=== PATIENT | female | born 1970 | race American Indian/Alaskan Native ===

== ENCOUNTER 2016-11-29 14:16 | Emergency (ER) | payer MEDICAID, OTHER ==
[2016-11-29 15:45] VITALS: BP 170/94
[2016-11-29 17:12] LABS: CHLORIDE,CL 104 mmol/L (101-111); SODIUM,NA 140 mmol/L (135-145)
--- NOTE | 2016-11-29 17:25 | EDM.PDOC ---
Scribed by Flores Buck 11/29/16 1722 for Chano Edwards PA ED HPI GENERAL MEDICAL PROBLEM - General Chief Complaint: Lower Extremity Injury/Pain Stated Complaint: [id number] SURGERY ON ANKLE INFECTION Time Seen by Provider: 11/29/16 16:17 Source of Information: Reports: Patient, RN Notes Reviewed History Limitations: Reports: No Limitations - History of Present Illness INITIAL COMMENTS - FREE TEXT/NARRATIVE: Patient has blisters on left foot and getting bigger. She had a check up on , Dr. Freedman her surgeon. She had surgery on November 09 in [place]. She saw her OBGyN 2 days ago. She has no history of MRSA or antibiotics. Location: Reports: Lower Extremity, Left Quality: Reports: Ache Severity: Mild Improves with: Reports: None Worsens with: Reports: None Associated Symptoms: Reports: No Other Symptoms Left Ankle Pain Score (Numeric/FACES): 10 - Related Data Allergies Allergy/AdvReac Type Severity Reaction Status Date / Time latex Allergy Redness Verified 11/29/16 15:10 lisinopril Allergy Cough Verified 11/29/16 15:10 Sulfa (Sulfonamide Allergy Rash Verified 11/29/16 15:10 Antibiotics) Home Meds: Home Meds Cetirizine [ZyrTEC] 10 mg PO DAILY PRN 05/23/15 [History] Losartan [Cozaar] 100 mg PO BEDTIME 05/23/15 [History] Sertraline HCl [Sertraline HCl] 100 mg PO DAILY 05/23/15 [History] Meclizine HCl [Antivert] 25 mg PO DAILY 10/07/15 [History] amLODIPine [Norvasc] 2.5 mg PO DAILY 03/28/16 [History] Levalbuterol Tartrate [Xopenex HFA] 1 mg PO ASDIRECTED 11/29/16 [History] Losartan [Cozaar] 100 mg PO ASDIRECTED 11/29/16 [History] Venlafaxine HCl [Venlafaxine ER] 150 mg PO ASDIRECTED 11/29/16 [History] busPIRone HCl [busPIRone] 30 mg PO ASDIRECTED 11/29/16 [History] Past Medical History HEENT History: Reports: Impaired Vision Other HEENT History: LEFT EYE COMPLETE BLINDNESS Cardiovascular History: Reports: Angina, Arrhythmia, Hypertension, SOB on Exertion, Other (See Below) Other Cardiovascular History: HEART PALPITATIONS Respiratory History: Reports: Asthma, Sleep Apnea, SOB, Other (See Below) Other Respiratory History: ASTHMA WITH ALLERGIES Gastrointestinal History: Reports: Cholelithiasis, Chronic Diarrhea Genitourinary History: Reports: None THIRD COOK History: Reports: , Other (See Below) Other OB/BYN History: UTERINE CYST Musculoskeletal History: Reports: Arthritis, Fracture Psychiatric History: Reports: Anxiety, Panic Attack Endocrine/Metabolic History: Reports: Obesity/BMI 30+ Hematologic History: Reports: Other (See Below) Other Hematologic History: POTASSIUM SUPPLEMENTS Dermatologic History: Reports: Other (See Below) Other Dermatologic History: SENSITIVE SKIN - Infectious Disease History Infectious Disease History: Reports: Chicken Pox, Rheumatic Fever - Past Surgical History HEENT Surgical History: Reports: Eye Surgery Female Surgical History: Reports: Breast Biopsy, Tubal Ligation, Other (See Below) Endocrine Surgical History: Reports: None Neurological Surgical History: Reports: None Musculoskeletal Surgical History: Reports: Other (See Below) Oncologic Surgical History: Reports: Biopsy of Breast Social & Family History - Family History Family Medical History: Noncontributory - Tobacco Use Smoking Status *Q: Never Smoker Second Hand Smoke Exposure: No - Caffeine Use Caffeine Use: Reports: Coffee - Recreational Drug Use Recreational Drug Use: No - Living Situation & Occupation Living situation: Reports: with Significant Other Occupation: Employed Review of Systems - Review of Systems Review Of Systems: ROS reveals no pertinent complaints other than HPI. ED EXAM, GENERAL - Physical Exam Exam: See Below Exam Limited By: No Limitations General Appearance: Alert, WD/WN, No Apparent Distress Eye Exam: Bilateral Eye: Normal Inspection Ears: Normal External Exam, Normal Canal, Hearing Grossly Normal, Normal TMs Nose: Normal Inspection, Normal Mucosa, No Blood Throat/Mouth: Normal Inspection, Normal Lips, Normal Teeth, Normal Gums, Normal Oropharynx, Normal Voice, No Airway Compromise Head: Atraumatic, Normocephalic Neck: Normal Inspection, Supple, Non-Tender, Full Range of Motion Respiratory/Chest: No Respiratory Distress, Lungs Clear, Normal Breath Sounds, No Accessory Muscle Use, Chest Non-Tender Cardiovascular: Normal Peripheral Pulses, Regular Rate, Rhythm, No Edema, No Gallop, No JVD, No Murmur, No Rub GI/Abdominal: Other (obese) (Female) Exam: Deferred Rectal (Female) Exam: Deferred Back Exam: Normal Inspection, Full Range of Motion, NT Extremities: Other (left ankle swelling(po) Neurological: Alert ( ), Oriented, CN II-XII Intact, Normal Cognition, Normal Gait, Normal Reflexes, No Motor/Sensory Deficits Psychiatric: Normal Affect, Normal Mood Skin Exam: Other (Clear fluid blister left anterior ankle. Mild incisional drainage(purulent). Pain with palpation.) Lymphatic: No Adenopathy Course - Vital Signs Last Recorded V/S: Last Vital Signs Temp 36.5 C 11/29/16 15:40 Pulse 83 11/29/16 15:40 Resp 14 11/29/16 15:40 BP 170/94 H 11/29/16 15:40 Pulse Ox 99 11/29/16 15:40 - Orders/Labs/Meds Orders: Active Orders 24 hr Category Date Time Status Ankle Min 3V Lt [CR] Urgent Exams 11/29/16 16:23 Taken CULTURE BLOOD [BC] Stat Lab 11/29/16 16:42 Received Labs: Laboratory Tests 11/29/16 11/29/16 11/29/16 Range/Units 16:42 16:42 16:42 WBC 10.8 H (5.0-10.0) 10^3/uL RBC 4.41 (4.2-5.4) 10^6/uL Hgb 12.1 (12.0-16.0) g/dL Hct 37.4 (37.0-47.0) % MCV 84.8 (80-100) fL MCH 27.4 (27.0-34.0) pg MCHC 32.4 L (33.0-35.0) g/dL Plt Count 342 (150-450) 10^3/uL Neut % (Auto) 71.6 (42.2-75.2) % Lymph % (Auto) 18.8 L (20.5-50.1) % [place] % (Auto) 6.4 (2-8) % Eos % (Auto) 3.0 (1.0-3.0) % Baso % (Auto) 0.2 (0.0-1.0) % Sodium 140 (135-145) mmol/L Potassium 3.9 (3.6-5.0) mmol/L Chloride 104 (101-111) mmol/L Carbon Dioxide 26.0 (21.0-31.0) mmol/L Anion Gap 13.9 BUN 18 (7-18) mg/dL Creatinine 0.6 (0.6-1.3) mg/dL Est Cr Clr Drug Dosing TNP Estimated GFR (MDRD) > 60 BUN/Creatinine Ratio 30.00 Glucose 105 (74-105) mg/dL Lactic Acid 1.0 (0.5-2.2) mmol/L Calcium 9.3 (8.4-10.2) mg/dl Total Bilirubin 0.4 (0.2-1.0) mg/dL AST 15 (10-42) IU/L ALT 17 (10-60) IU/L Alkaline Phosphatase 78 (42-121) IU/L Total Protein 7.5 (6.7-8.2) g/dl Albumin 3.9 (3.2-5.5) g/dl Globulin 3.6 Albumin/Globulin Ratio 1.08 Departure - Departure Time of Disposition: 17:18 Disposition: Home, Self-Care 01 Condition: Good Clinical Impression: Cellulitis Qualifiers: Site of cellulitis: extremity Site of cellulitis of extremity: lower extremity Laterality: left Qualified Code(s): L03.116 - Cellulitis of left lower limb - Discharge Information Instructions: Cellulitis, Adult, [id number] Forms: ED Department Discharge Additional Instructions: Doxycycline 100mg p.o.b.i.d. x10 days. - My Orders Last 24 Hours: My Active Orders 11/29/16 16:23 Ankle Min 3V Lt [CR] Urgent 11/29/16 16:42 CULTURE BLOOD [BC] Stat - Assessment/Plan Last 24 Hours: My Active Orders 11/29/16 16:23 Ankle Min 3V Lt [CR] Urgent 11/29/16 16:42 CULTURE BLOOD [BC] Stat I have read and agree with the documentation that has been completed regarding this visit. By signing this record, I attest that the documentation was completed in my physical presence and is an accurate record of the encounter.
== END 2016-11-29 17:27 | disposition home or self-care (01) ==
LOC: DL.ED 14:16
DX: L03.116 Cellulitis of left lower limb (principal); I10 Essential (primary) hypertension; J45.909 Unspecified asthma, uncomplicated; G47.30 Sleep apnea, unspecified; M19.90 Unspecified osteoarthritis, unspecified site; F41.0 Panic disorder [episodic paroxysmal anxiety]; E66.9 Obesity, unspecified; Z98.51 Tubal ligation status; Z98.890 Other specified postprocedural states; Z79.899 Other long term (current) drug therapy; Z88.2 Allergy status to sulfonamides; Z88.8 Allergy status to other drugs, medicaments and biological substances; Z91.040 Latex allergy status
CPT/HCPCS: 36415; 73610-LT; 80053; 83605; 85025; 87040; 99283

== ENCOUNTER 2017-01-05 15:16 | Emergency (ER) | payer MEDICAID ==
[2017-01-05] MEDS ORDERED: Sodium Chloride 0.9% 10 ML Syringe FLUSH PRN (17:00)
[2017-01-05] MEDS ORDERED: Levofloxacin/Dextrose 5%-Water 500 MG in Premix Bag 1 BAG IV ONE (17:00)
[2017-01-05] MEDS ORDERED: Ondansetron 4 MG/2 ML SDV IV ONE (17:00)
[2017-01-05] MEDS ORDERED: Sodium Chloride 0.9% 1,000 ML IV ONE (17:00)
[2017-01-05] MEDS ORDERED: HYDROmorphone 1 MG/ML Syringe IVPUSH ONE ×2 (17:00→18:34)
[2017-01-05 17:01] VITALS: BP 150/74
[2017-01-05 17:41] LABS: CHLORIDE,CL 101 mmol/L (101-111); SODIUM,NA 138 mmol/L (135-145)
--- NOTE | 2017-01-05 18:35 | EDM.PDOC ---
Scribed by Flores Buck 01/05/17 1806 for Jarod Irving MD ED HPI GENERAL MEDICAL PROBLEM - General Chief Complaint: Genitourinary Problem Stated Complaint: UTI [id number] Time Seen by Provider: 01/05/17 16:55 Source of Information: Reports: Patient, RN, RN Notes Reviewed History Limitations: Reports: No Limitations - History of Present Illness INITIAL COMMENTS - FREE TEXT/NARRATIVE: Patient presents by POV with complaint of pain and burning with urination. Patient states she had a hysterectomy in [place] on 12/28/16. She contacted her [facility] surgeon on 01/03/17 to report urinary symptoms. Her doctor ordered a UA and diagnosed her with UTI and sent a prescription for Bactrim DS to the patient's pharmacy. The patient took one dose, and then realized that it was a sulfa medication and she has a sulfa allergy. She took Benadryl 25mg and called her doctor. She states that the doctor stated that she would send another antibiotic prescription but it did not arrive to the pharmacy closing. She states that her urinary symptoms have not improved. She believes that she may have had a low grade fever last evening. Denies any flank pain. She reports that her postoperative pelvic pain is about as she expected, however, she did run out of her pain medication. Location: Reports: Back Quality: Reports: Ache Severity: Moderate Improves with: Reports: None Worsens with: Reports: None Associated Symptoms: Reports: No Other Symptoms - Related Data Allergies Allergy/AdvReac Type Severity Reaction Status Date / Time latex Allergy Redness Verified 11/29/16 15:10 lisinopril Allergy Cough Verified 11/29/16 15:10 Sulfa (Sulfonamide Allergy Rash Verified 11/29/16 15:10 Antibiotics) Home Meds: Home Meds Cetirizine [ZyrTEC] 10 mg PO DAILY PRN 05/23/15 [History] Losartan [Cozaar] 100 mg PO BEDTIME 05/23/15 [History] Sertraline HCl [Sertraline HCl] 100 mg PO DAILY 05/23/15 [History] Meclizine HCl [Antivert] 25 mg PO DAILY 10/07/15 [History] amLODIPine [Norvasc] 2.5 mg PO DAILY 03/28/16 [History] Levalbuterol Tartrate [Xopenex HFA] 1 mg PO ASDIRECTED 11/29/16 [History] Losartan [Cozaar] 100 mg PO ASDIRECTED 11/29/16 [History] Venlafaxine HCl [Venlafaxine ER] 150 mg PO ASDIRECTED 11/29/16 [History] busPIRone HCl [busPIRone] 30 mg PO ASDIRECTED 11/29/16 [History] Past Medical History HEENT History: Reports: Impaired Vision Other HEENT History: LEFT EYE COMPLETE BLINDNESS Cardiovascular History: Reports: Angina, Arrhythmia, Hypertension, SOB on Exertion, Other (See Below) Other Cardiovascular History: HEART PALPITATIONS Respiratory History: Reports: Asthma, Sleep Apnea, SOB, Other (See Below) Other Respiratory History: ASTHMA WITH ALLERGIES Gastrointestinal History: Reports: Cholelithiasis, Chronic Diarrhea Genitourinary History: Reports: None [facility] [employer] History: Reports: , Other (See Below) Other OB/BYN History: UTERINE CYST Musculoskeletal History: Reports: Arthritis, Fracture Psychiatric History: Reports: Anxiety, Panic Attack Endocrine/Metabolic History: Reports: Obesity/BMI 30+ Hematologic History: Reports: Other (See Below) Other Hematologic History: POTASSIUM SUPPLEMENTS Dermatologic History: Reports: Other (See Below) Other Dermatologic History: SENSITIVE SKIN - Infectious Disease History Infectious Disease History: Reports: Chicken Pox, Rheumatic Fever - Past Surgical History HEENT Surgical History: Reports: Eye Surgery Female Surgical History: Reports: Breast Biopsy, Hysterectomy, Tubal Ligation , Other (See Below) Endocrine Surgical History: Reports: None Neurological Surgical History: Reports: None Musculoskeletal Surgical History: Reports: Other (See Below) Oncologic Surgical History: Reports: Biopsy of Breast Social & Family History - Family History Family Medical History: Noncontributory - Tobacco Use Smoking Status *Q: Never Smoker Second Hand Smoke Exposure: No - Caffeine Use Caffeine Use: Reports: Coffee - Recreational Drug Use Recreational Drug Use: No - Living Situation & Occupation Living situation: Reports: with Significant Other Occupation: Employed ED ROS GENERAL - Review of Systems Review Of Systems: ROS reveals no pertinent complaints other than HPI. ED EXAM, RENAL/ - Physical Exam Exam: See Below Exam Limited By: No Limitations General Appearance: Alert, WD/WN, No Apparent Distress, Obese Eye Exam: Bilateral Eye: Normal Inspection Ears: Normal External Exam, Normal Canal, Hearing Grossly Normal, Normal TMs Nose: Normal Inspection, Normal Mucosa, No Blood Throat/Mouth: Normal Inspection, Normal Lips, Normal Teeth, Normal Gums, Normal Oropharynx, Normal Voice, No Airway Compromise Head: Atraumatic, Normocephalic Neck: Other (No nuchal rigidity) Respiratory/Chest: No Respiratory Distress, Lungs Clear, Normal Breath Sounds, No Accessory Muscle Use, Chest Non-Tender Cardiovascular: Normal Peripheral Pulses, Regular Rate, Rhythm, No Edema, No Gallop, No JVD, No Murmur, No Rub GI/Abdominal: Other (Well healed surgical incision. Moderate lower abdomen tenderness as expected for POD#8. ) (Female) Exam: Deferred Rectal (Female) Exam: Deferred Back Exam: Normal Inspection, Full Range of Motion, NT Extremities: Normal Inspection, Normal Range of Motion, Non-Tender, Normal Capillary Refill, No Pedal Edema Neurological: Alert, Oriented, CN II-XII Intact, Normal Cognition, Normal Gait, Normal Reflexes, No Motor/Sensory Deficits Psychiatric: Normal Affect, Normal Mood Skin Exam: Warm, Dry, Intact, Normal Color, No Rash Course - Vital Signs Last Recorded V/S: Last Vital Signs Temp 36.3 C 01/05/17 16:55 Pulse 83 01/05/17 16:55 Resp 22 H 01/05/17 16:55 BP 150/74 H 01/05/17 16:55 Pulse Ox 100 01/05/17 16:55 - Orders/Labs/Meds Orders: Active Orders 24 hr Category Date Time Status Peripheral IV Care [RC] . DIRECTED Care 01/05/17 17:00 Active CULTURE URINE [RM] Stat Lab 01/05/17 15:24 Received Levofloxacin/Dextrose 5%-Water [Levaquin in D5W 500 MG/ Med 01/05/17 17:00 Active 100 ML] 500 mg Premix Bag 1 bag IV ONETIME Sodium Chloride 0.9% [Normal Saline] 1,000 ml Med 01/05/17 17:00 Active IV .BOLUS Sodium Chloride 0.9% [Saline Flush] Med 01/05/17 17:00 Active 10 ml FLUSH ASDIRECTED PRN Peripheral IV Insertion Adult [OM.PC] Stat Oth 01/05/17 17:00 Ordered Medication Orders Levofloxacin/Dextrose 500 mg/ (Premix) 100 mls @ 100 mls/hr IV ONETIME ONE Stop: 01/05/17 17:59 Last Admin: 01/05/17 17:32 Dose: 100 mls/hr Sodium Chloride (Normal Saline) 1,000 mls @ 999 mls/hr IV .BOLUS ONE Stop: 01/05/17 18:00 Last Admin: 01/05/17 17:21 Dose: 999 mls/hr Sodium Chloride (Saline Flush) 10 ml FLUSH ASDIRECTED PRN PRN Reason: Keep Vein Open Last Admin: 01/05/17 17:16 Dose: 10 ml Labs: Laboratory Tests 01/05/17 01/05/17 01/05/17 Range/Units 15:24 15:24 17:15 WBC 14.8 H (5.0-10.0) 10^3/uL RBC 4.37 (4.2-5.4) 10^6/uL Hgb 11.8 L (12.0-16.0) g/dL Hct 37.2 (37.0-47.0) % MCV 85.1 (80-100) fL MCH 27.0 (27.0-34.0) pg MCHC 31.7 L (33.0-35.0) g/dL Plt Count 370 (150-450) 10^3/uL Neut % (Auto) 77.3 H (42.2-75.2) % Lymph % (Auto) 10.2 L (20.5-50.1) % [place] % (Auto) 5.5 (2-8) % Eos % (Auto) 6.9 H (1.0-3.0) % Baso % (Auto) 0.1 (0.0-1.0) % Sodium (135-145) mmol/L Potassium (3.6-5.0) mmol/L Chloride (101-111) mmol/L Carbon Dioxide (21.0-31.0) mmol/L Anion Gap BUN (7-18) mg/dL Creatinine (0.6-1.3) mg/dL Est Cr Clr Drug Dosing mL/min Estimated GFR (MDRD) BUN/Creatinine Ratio Glucose (74-105) mg/dL Calcium (8.4-10.2) mg/dl Total Bilirubin (0.2-1.0) mg/dL AST (10-42) IU/L ALT (10-60) IU/L Alkaline Phosphatase (42-121) IU/L Total Protein (6.7-8.2) g/dl Albumin (3.2-5.5) g/dl Globulin Albumin/Globulin Ratio Urine Color Yellow (YELLOW) Urine Appearance Slightly cloudy (CLEAR) Urine pH 7.0 (5.0-9.0) Ur Specific [place] 1.015 (1.005-1.030) Urine Protein Negative (NEGATIVE) Urine Glucose (UA) Negative (NEGATIVE) Urine Ketones Negative (NEGATIVE) Urine Occult Blood Trace-lysed H (NEGATIVE) Urine Nitrite Negative (NEGATIVE) Urine Bilirubin Negative (NEGATIVE) Urine Urobilinogen 0.2 (0.2-1.0) mg/dL Ur Leukocyte Esterase Trace H (NEGATIVE) Urine RBC 0-5 /HPF Urine WBC 10-20 H (0-5/HPF) /HPF Ur Epithelial Cells Few /HPF Urine Bacteria Rare (0-FEW/HPF) /HPF Urine Mucus Rare /LPF Urine HCG, Qual Negative 01/05/17 Range/Units 17:15 WBC (5.0-10.0) 10^3/uL RBC (4.2-5.4) 10^6/uL Hgb (12.0-16.0) g/dL Hct (37.0-47.0) % MCV (80-100) fL MCH (27.0-34.0) pg MCHC (33.0-35.0) g/dL Plt Count (150-450) 10^3/uL Neut % (Auto) (42.2-75.2) % Lymph % (Auto) (20.5-50.1) % [place] % (Auto) (2-8) % Eos % (Auto) (1.0-3.0) % Baso % (Auto) (0.0-1.0) % Sodium 138 (135-145) mmol/L Potassium 4.1 (3.6-5.0) mmol/L Chloride 101 (101-111) mmol/L Carbon Dioxide 25.0 (21.0-31.0) mmol/L Anion Gap 16.1 BUN 10 (7-18) mg/dL Creatinine 0.8 (0.6-1.3) mg/dL Est Cr Clr Drug Dosing 71.91 mL/min Estimated GFR (MDRD) > 60 BUN/Creatinine Ratio 12.50 Glucose 131 H (74-105) mg/dL Calcium 8.9 (8.4-10.2) mg/dl Total Bilirubin 0.4 (0.2-1.0) mg/dL AST 16 (10-42) IU/L ALT 17 (10-60) IU/L Alkaline Phosphatase 83 (42-121) IU/L Total Protein 7.7 (6.7-8.2) g/dl Albumin 3.6 (3.2-5.5) g/dl Globulin 4.1 Albumin/Globulin Ratio 0.88 Urine Color (YELLOW) Urine Appearance (CLEAR) Urine pH (5.0-9.0) Ur Specific [place] (1.005-1.030) Urine Protein (NEGATIVE) Urine Glucose (UA) (NEGATIVE) Urine Ketones (NEGATIVE) Urine Occult Blood (NEGATIVE) Urine Nitrite (NEGATIVE) Urine Bilirubin (NEGATIVE) Urine Urobilinogen (0.2-1.0) mg/dL Ur Leukocyte Esterase (NEGATIVE) Urine RBC /HPF Urine WBC (0-5/HPF) /HPF Ur Epithelial Cells /HPF Urine Bacteria (0-FEW/HPF) /HPF Urine Mucus /LPF Urine HCG, Qual Meds: Medications Generic Name Dose Route Start Last Admin Trade Name Freq PRN Reason Stop Dose Admin Levofloxacin/Dextrose 500 mg/ 100 mls @ 100 mls/hr 01/05/17 17:00 01/05/17 17 :32 Premix IV 01/05/17 17:59 100 mls/hr ONETIME ONE Administration Sodium Chloride 1,000 mls @ 999 mls/hr 01/05/17 17:00 01/05/17 17:21 Normal Saline IV 01/05/17 18:00 999 mls/hr .BOLUS ONE Administration Sodium Chloride 10 ml 01/05/17 17:00 01/05/17 17:16 Saline Flush FLUSH 10 ml ASDIRECTED PRN Administration Keep Vein Open Discontinued Medications Generic Name Dose Route Start Last Admin Trade Name Freq PRN Reason Stop Dose Admin Hydromorphone HCl 1 mg 01/05/17 17:00 01/05/17 17:25 Dilaudid IVPUSH 01/05/17 17:01 1 mg ONETIME ONE Administration Ondansetron HCl 4 mg 01/05/17 17:00 01/05/17 17:23 Zofran IV 01/05/17 17:01 4 mg ONETIME ONE Administration Departure - Departure Time of Disposition: 18:03 Disposition: Home, Self-Care 01 Condition: Fair Clinical Impression: UTI (urinary tract infection) - Discharge Information Instructions: Urinary Tract Infection, Adult, [id number] Forms: ED Department Discharge Additional Instructions: RX: Cipro 500mg. RX: Percocet 5mg/325mg. Follow up with your [facility] next week for recheck. Return to ER if worse at any time. I have read and agree with the documentation that has been completed regarding this visit. By signing this record, I attest that the documentation was completed in my physical presence and is an accurate record of the encounter.
[2017-01-05] MEDS ORDERED: Acetaminophen/oxyCODONE 325-5 MG Tab ONE (19:08)
[2017-01-05] MEDS ORDERED: Acetaminophen/oxyCODONE 325-5 MG Tab PO ONE (19:08)
== END 2017-01-05 19:13 | disposition home or self-care (01) ==
LOC: DL.ED 15:16
DX: N39.0 Urinary tract infection, site not specified (principal); I10 Essential (primary) hypertension; J45.909 Unspecified asthma, uncomplicated; F41.0 Panic disorder [episodic paroxysmal anxiety]; E66.9 Obesity, unspecified; G47.30 Sleep apnea, unspecified; M19.90 Unspecified osteoarthritis, unspecified site; Z90.710 Acquired absence of both cervix and uterus; Z98.51 Tubal ligation status; Z98.890 Other specified postprocedural states; Z79.899 Other long term (current) drug therapy; Z88.2 Allergy status to sulfonamides; Z88.8 Allergy status to other drugs, medicaments and biological substances; Z91.040 Latex allergy status; Z68.41 Body mass index [BMI] 40.0-44.9, adult
CPT/HCPCS: 36415; 80053; 81001; 81025; 85025; 87086; 96365; 96366; 96368; 96375; 96376; 99283; J1170; J1956; J2405; J7030; J7050; 87088; 87186; A9270-GY

== ENCOUNTER 2017-07-15 19:54 | Emergency (ER) | payer MEDICAID ==
[2017-07-15] MEDS ORDERED: Aspirin 81 MG Tab.Chew PO ONE (20:30)
[2017-07-15 20:45] LABS: CHLORIDE,CL 103 mmol/L (101-111); SODIUM,NA 136 mmol/L (135-145)
[2017-07-15] MEDS ORDERED: Nitroglycerin 0.4 MG Tab.SL SL ONE (20:56)
--- NOTE | 2017-07-15 20:56 | EDM.PDOC ---
ED HPI GENERAL MEDICAL PROBLEM - General Chief Complaint: Chest Pain Stated Complaint: [id number] chest pains sob Time Seen by Provider: 07/15/17 20:28 Source of Information: Reports: Patient, RN, RN Notes Reviewed - History of Present Illness INITIAL COMMENTS - FREE TEXT/NARRATIVE: Pt presents to the ER with c/o chest pain and shortness of breath. She states the chest pain radiated up to the left shoulder/neck. She states the pain began about 1900 today. She states she felt pressure in the chest and her breathing became labored. She states she has asthma and tried to use her inhaler but this did not help. Pt states she began coughing at this time as well. Pt rates the pain a 6/10 at this time. Patient admits to recent chills, chest pain and sob, and cough which began today. Denies fever, N/V/D, or sore throat. Patient was recently started on nifedipine by Dr. Laws. She asks if this medication could be causing this feeling. Patient states she has the history of asthma and states this began when she went outside, is also wondering if the cold air outside could have triggered something with her asthma, although patient is not having any difficulty breathing at this time. Patient states a history of anxiety, but feels there was nothing to trigger an anxiety attack today. Onset: Today, Sudden Duration: Constant, Getting Worse Location: Reports: Chest Quality: Reports: Pressure Severity: Moderate Improves with: Reports: None Worsens with: Reports: None Associated Symptoms: Reports: Chest Pain, Cough, Shortness of Breath Mid-Sternal Chest Pain Score (Numeric/FACES): 6 - Related Data Allergies Allergy/AdvReac Type Severity Reaction Status Date / Time latex Allergy Redness Verified 07/15/17 20:07 lisinopril Allergy Cough Verified 07/15/17 20:07 Sulfa (Sulfonamide Allergy Rash Verified 07/15/17 20:07 Antibiotics) Home Meds: Home Meds Cetirizine [ZyrTEC] 10 mg PO DAILY PRN 05/23/15 [History] Losartan [Cozaar] 100 mg PO BEDTIME 05/23/15 [History] Sertraline HCl [Sertraline HCl] 100 mg PO DAILY 05/23/15 [History] Meclizine HCl [Antivert] 25 mg PO DAILY 10/07/15 [History] amLODIPine [Norvasc] 2.5 mg PO DAILY 03/28/16 [History] Levalbuterol Tartrate [Xopenex HFA] 1 mg PO ASDIRECTED 11/29/16 [History] Losartan [Cozaar] 100 mg PO ASDIRECTED 11/29/16 [History] Venlafaxine HCl [Venlafaxine ER] 150 mg PO ASDIRECTED 11/29/16 [History] busPIRone HCl [busPIRone] 30 mg PO ASDIRECTED 11/29/16 [History] Past Medical History HEENT History: Reports: Impaired Vision Other HEENT History: LEFT EYE COMPLETE BLINDNESS Cardiovascular History: Reports: Angina, Arrhythmia, Hypertension, SOB on Exertion, Other (See Below) Other Cardiovascular History: HEART PALPITATIONS Respiratory History: Reports: Asthma, Sleep Apnea, SOB, Other (See Below) Other Respiratory History: ASTHMA WITH ALLERGIES Gastrointestinal History: Reports: Cholelithiasis, Chronic Diarrhea Genitourinary History: Reports: None 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: , 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 (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) Other OB/BYN History: UTERINE CYST Musculoskeletal History: Reports: Arthritis, Fracture Psychiatric History: Reports: Anxiety, Panic Attack Endocrine/Metabolic History: Reports: Obesity/BMI 30+ Hematologic History: Reports: Other (See Below) Other Hematologic History: POTASSIUM SUPPLEMENTS Dermatologic History: Reports: Other (See Below) Other Dermatologic History: SENSITIVE SKIN - Infectious Disease History Infectious Disease History: Reports: Chicken Pox, Rheumatic Fever - Past Surgical History HEENT Surgical History: Reports: Eye Surgery Female Surgical History: Reports: Breast Biopsy, Hysterectomy, Tubal Ligation , Other (See Below) Endocrine Surgical History: Reports: None Neurological Surgical History: Reports: None Musculoskeletal Surgical History: Reports: Other (See Below) Oncologic Surgical History: Reports: Biopsy of Breast Social & Family History - Family History Family Medical History: Noncontributory - Tobacco Use Smoking Status *Q: Never Smoker Second Hand Smoke Exposure: No - Caffeine Use Caffeine Use: Reports: Soda, Tea - Recreational Drug Use Recreational Drug Use: No - Living Situation & Occupation Living situation: Reports: with Significant Other Occupation: Employed ED ROS GENERAL - Review of Systems Review Of Systems: ROS reveals no pertinent complaints other than HPI. ED EXAM, GENERAL - Physical Exam Exam: See Below Exam Limited By: No Limitations General Appearance: Alert, WD/WN, No Apparent Distress Eye Exam: Bilateral Eye: EOMI, Normal Inspection Ears: Normal External Exam, Hearing Grossly Normal Nose: Normal Inspection Throat/Mouth: Normal Inspection, Normal Lips, Normal Teeth, Normal Gums, Normal Oropharynx, Normal Voice, No Airway Compromise Head: Atraumatic, Normocephalic Neck: Normal Inspection, Supple, Non-Tender, Full Range of Motion Respiratory/Chest: No Respiratory Distress, Lungs Clear, Normal Breath Sounds, No Accessory Muscle Use, Other (chest somewhat tender on palpation) Cardiovascular: Normal Peripheral Pulses, Regular Rate, Rhythm, No Edema, No Gallop, No JVD, No Murmur, No Rub Peripheral Pulses: 2+: Radial (L), Radial (R) GI/Abdominal: Normal Bowel Sounds, Soft, Non-Tender, No Organomegaly, No Distention, No Abnormal Bruit, No Mass (Female) Exam: Deferred Rectal (Female) Exam: Deferred Back Exam: Normal Inspection, Full Range of Motion Extremities: Normal Inspection, Normal Range of Motion, Non-Tender, Normal Capillary Refill, No Pedal Edema Neurological: Alert, Oriented, CN II-XII Intact, Normal Cognition, Normal Gait, Normal Reflexes, No Motor/Sensory Deficits Psychiatric: Anxious Skin Exam: Warm, Dry, Intact, Normal Color, No Rash Lymphatic: No Adenopathy EKG INTERPRETATION EKG Date: 07/15/17 Time: 18:56 Rhythm: NSR Rate (Beats/Min): 90 [place]: Normal P-Wave: Present QRS: Normal ST-T: Normal QT: Normal Comparison: No Change (Bradycardic on last EKG, but otherwise no change) Course - Vital Signs Last Recorded V/S: Last Vital Signs Temp 98.2 F 07/15/17 19:55 Pulse 95 07/15/17 19:55 Resp 20 07/15/17 19:55 BP 170/94 H 07/15/17 21:03 Pulse Ox 100 07/15/17 19:55 - Orders/Labs/Meds Orders: Active Orders 24 hr Category Date Time Status EKG Documentation Completion [RC] URGENT Care 07/15/17 20:01 Active Labs: Laboratory Tests 07/15/17 07/15/17 07/15/17 Range/Units 20:16 20:16 20:16 WBC 12.1 H (5.0-10.0) 10^3/uL RBC 4.37 (4.2-5.4) 10^6/uL Hgb 12.2 (12.0-16.0) g/dL Hct 37.0 (37.0-47.0) % MCV 84.7 (80-100) fL MCH 27.9 (27.0-34.0) pg MCHC 33.0 (33.0-35.0) g/dL Plt Count 322 (150-450) 10^3/uL Neut % (Auto) 67.9 (42.2-75.2) % Lymph % (Auto) 23.1 (20.5-50.1) % [place] % (Auto) 6.1 (2-8) % Eos % (Auto) 2.7 (1.0-3.0) % Baso % (Auto) 0.2 (0.0-1.0) % Sodium 136 (135-145) mmol/L Potassium 3.7 (3.6-5.0) mmol/L Chloride 103 (101-111) mmol/L Carbon Dioxide 24.0 (21.0-31.0) mmol/L Anion Gap 12.7 BUN 16 (7-18) mg/dL Creatinine 1.1 (0.6-1.3) mg/dL Est Cr Clr Drug Dosing 49.47 mL/min Estimated GFR (MDRD) 53 BUN/Creatinine Ratio 14.54 Glucose 146 H (74-105) mg/dL Lactic Acid 1.4 (0.5-2.2) mmol/L Calcium 8.7 (8.4-10.2) mg/dl Total Bilirubin 0.4 (0.2-1.0) mg/dL AST 21 (10-42) IU/L ALT 21 (10-60) IU/L Alkaline Phosphatase 74 (42-121) IU/L Troponin I < 0.02 (0.00-0.02) ng/ml Total Protein 7.3 (6.7-8.2) g/dl Albumin 3.8 (3.2-5.5) g/dl Globulin 3.5 Albumin/Globulin Ratio 1.09 Meds: Medications Discontinued Medications Generic Name Dose Route Start Last Admin Trade Name Freq PRN Reason Stop Dose Admin Aspirin 324 mg 07/15/17 20:30 07/15/17 20:36 Aspirin PO 07/15/17 20:31 324 mg ONETIME ONE Administration Nitroglycerin 0.4 mg 07/15/17 20:56 07/15/17 21:03 Nitrostat SL 07/15/17 20:57 0.4 mg Q5M ONE Administration - Radiology Interpretation Free Text/Narrative:: Chest xray: No acute cardiopulmonary process. There is no significant interval change. See rad report Departure - Departure Time of Disposition: 21:30 Disposition: Home, Self-Care 01 Condition: Fair Clinical Impression: Nonspecific chest pain Instructions: Nonspecific Chest Pain, [id number] Referrals: Vivian Coello [Primary Care Provider] - Forms: ED Department Discharge Additional Instructions: Follow up with Dr. Laws Follow up with your primary care facility Return to the ER with any further problems - My Orders Last 24 Hours: My Active Orders 07/15/17 20:01 EKG Documentation Completion [RC] URGENT - Assessment/Plan Last 24 Hours: My Active Orders 07/15/17 20:01 EKG Documentation Completion [RC] URGENT
[2017-07-15 21:04] VITALS: BP 170/94
--- NOTE | 2017-07-17 10:54 | EKG ---
07/15/2017- LÁZARO SHELDON - FINDINGS: EKG per my reading shows sinus rhythm at the rate of 90. MODL /[id number]
== END 2017-07-15 21:48 | disposition home or self-care (01) ==
LOC: DL.ED 19:54
DX: R07.89 Other chest pain (principal); I10 Essential (primary) hypertension; Z91.040 Latex allergy status; Z88.2 Allergy status to sulfonamides; Z88.8 Allergy status to other drugs, medicaments and biological substances; Z79.899 Other long term (current) drug therapy
CPT/HCPCS: 36415; 71045; 80053; 83605; 84484; 85025; 93005; 99285; A9270

== ENCOUNTER 2017-08-07 12:15 | Inpatient (IN) | payer MEDICAID ==
[2017-08-07] MEDS ORDERED: cefTRIAXone 1,000 MG in Sodium Chloride 0.9% 50 ML IV SCH (12:45)
[2017-08-07] MEDS ORDERED: Sodium Chloride 0.9% 10 ML Syringe FLUSH PRN (12:56)
--- NOTE | 2017-08-07 13:12 | PCM.HP ---
H&P History of Present Illness - General Date of Service: 08/07/17 Admit Problem/Dx: Admission Diagnosis/Problem Admission Diagnosis/Problem Hypoxemia Source of Information: Patient, Provider - History of Present Illness Initial Comments - Free Text/Narative: The patient is a 47-year-old lady with a history of asthma, anxiety, hypertension. She is also using the CPAP machine for obstructive sleep apnea. She was in close contact with her brother who has been coughing for a while. On 06 August the patient started to have cough. Overnight worsened. By today she is short of breath with minimal activity, associated with coughing, no sputum production. Feeling cold, chills, did not check her temperature at home. She went to the clinic where she was noted to have hypoxemia with oxygen saturations 88 on room air. - Related Data Allergies/Adverse Reactions: Allergies Allergy/AdvReac Type Severity Reaction Status Date / Time latex Allergy Redness Verified 08/07/17 12:44 lisinopril Allergy Cough Verified 08/07/17 12:44 Sulfa (Sulfonamide Allergy Rash Verified 08/07/17 12:44 Antibiotics) Home Medications: Home Meds Cetirizine [ZyrTEC] 10 mg PO DAILY PRN 05/23/15 [History] Losartan [Cozaar] 100 mg PO BEDTIME 05/23/15 [History] Sertraline HCl 100 mg PO DAILY 05/23/15 [History] Meclizine HCl [Antivert] 25 mg PO DAILY 10/07/15 [History] Levalbuterol Tartrate [Xopenex HFA] 1 mg PO DAILY 11/29/16 [History] Venlafaxine HCl [Venlafaxine ER] 150 mg PO DAILY 11/29/16 [History] busPIRone HCl [busPIRone] 30 mg PO DAILY 11/29/16 [History] ARIPiprazole [Aripiprazole] 10 mg PO DAILY 08/07/17 [History] ClonazePAM [KlonoPIN] 0.5 mg PO TID PRN 08/07/17 [History] Fluticasone/Salmeterol [Advair 500-50] 1 inh INH DAILY 08/07/17 [History] NIFEdipine [Nifedipine ER] 30 mg PO DAILY 08/07/17 [History] Past Medical History HEENT History: Reports: Impaired Vision Other HEENT History: LEFT EYE COMPLETE BLINDNESS Cardiovascular History: Reports: Angina, Arrhythmia, Hypertension, SOB on Exertion, Other (See Below) Other Cardiovascular History: HEART PALPITATIONS Respiratory History: Reports: Asthma, Sleep Apnea, SOB, Other (See Below) Other Respiratory History: ASTHMA WITH ALLERGIES Gastrointestinal History: Reports: Cholelithiasis, Chronic Diarrhea Genitourinary History: Reports: None 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: , 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 (See Below) Other OB/BYN History: UTERINE CYST Musculoskeletal History: Reports: Arthritis, Fracture Psychiatric History: Reports: Anxiety, Panic Attack Endocrine/Metabolic History: Reports: Obesity/BMI 30+ Hematologic History: Reports: Other (See Below) Other Hematologic History: POTASSIUM SUPPLEMENTS Dermatologic History: Reports: Other (See Below) Other Dermatologic History: SENSITIVE SKIN - Infectious Disease History Infectious Disease History: Reports: Chicken Pox, Rheumatic Fever - Past Surgical History HEENT Surgical History: Reports: Eye Surgery Female Surgical History: Reports: Breast Biopsy, Hysterectomy, Tubal Ligation , Other (See Below) Endocrine Surgical History: Reports: None Neurological Surgical History: Reports: None Musculoskeletal Surgical History: Reports: Other (See Below) Oncologic Surgical History: Reports: Biopsy of Breast Social & Family History - Family History Family Medical History: Noncontributory - Tobacco Use Smoking Status *Q: Never Smoker Second Hand Smoke Exposure: No - Caffeine Use Caffeine Use: Reports: Soda, Tea - Recreational Drug Use Recreational Drug Use: No - Living Situation & Occupation Living situation: Reports: with Significant Other Occupation: Employed H&P Review of Systems - Review of Systems: Review Of Systems: See Below General: Reports: Fever (Subjective), Chills Pulmonary: Reports: Shortness of Breath, Wheezing, Cough. Denies: Sputum, Hemoptysis Cardiovascular: Denies: Chest Pain, Palpitations Gastrointestinal: Denies: Abdominal Pain Psychiatric: Denies: Confusion Exam - Exam Exam: See Below - Exam Quality Assessment: Supplemental Oxygen General: Alert, Oriented Lungs: Normal Respiratory Effort, Wheezing, Other (Coughing spells) Cardiovascular: Regular Rate, Regular Rhythm GI/Abdominal Exam: Normal Bowel Sounds, Soft, Non-Tender Extremities: No Pedal Edema Skin: Warm, Dry Neuro Extensive - Mental Status: Alert, Oriented x3, Normal Mood/Affect Psychiatric: Alert, Normal Affect, Normal Mood - Patient Data Result Diagrams: 08/07/17 12:43 08/07/17 12:43 Problem List Initiated/Reviewed/Updated: Yes Orders Last 24hrs: Active Orders 24 hr Category Date Time Status Patient Status [ADT] Routine ADT 08/07/17 12:56 Ordered Oxygen Therapy [RC] PRN Care 08/07/17 12:56 Ordered Peripheral IV Care [RC] . DIRECTED Care 08/07/17 12:57 Ordered RT Aerosol Therapy [RC] ASDIRECTED Care 08/07/17 12:36 Ordered RT Aerosol Therapy [RC] ASDIRECTED Care 08/07/17 12:37 Ordered RT Post Treatment Assessment [RC] Click to Edit Care 08/07/17 12:37 Ordered RT Pre-Treatment Assessment [RC] Click to Edit Care 08/07/17 12:37 Ordered Up With Assistance [RC] ASDIRECTED Care 08/07/17 12:56 Ordered VTE/DVT Education [RC] PER UNIT ROUTINE Care 08/07/17 12:56 Ordered Vital Signs [RC] Q4H Care 08/07/17 12:56 Ordered Regular Diet [DIET] Diet 08/07/17 Dinner Ordered Chest 2V [CR] Routine Exams 08/07/17 12:33 Ordered Chest 2V [CR] Routine Exams 08/07/17 12:33 Stop Req BASIC METABOLIC PANEL,BMP [CHEM] Routine Lab 08/07/17 12:32 Ordered CBC WITH AUTO DIFF [HEME] Routine Lab 08/07/17 12:32 Ordered CULTURE BLOOD [BC] Stat Lab 08/07/17 12:33 Ordered CULTURE BLOOD [BC] Stat Lab 08/07/17 12:33 Ordered CULTURE SPUTUM + SMEAR [RM] Routine Lab 08/07/17 12:35 Ordered CULTURE URINE [RM] Routine Lab 08/07/17 12:32 Ordered HCG QUALITATIVE,URINE [URCHEM] Routine Lab 08/07/17 12:34 Ordered INFLUENZA A+B AG SCREEN [RM] Urgent Lab 08/07/17 13:07 Ordered LACTIC ACID [CHEM] Routine Lab 08/07/17 12:32 Ordered UA W/MICROSCOPIC [URIN] Routine Lab 08/07/17 12:32 Ordered ARIPiprazole [Aripiprazole] Med 08/08/17 09:00 Ordered 10 mg PO DAILY Albuterol/Ipratropium [DuoNeb 3.0-0.5 MG/3 ML] Med 08/07/17 13:00 Ordered 3 ml NEB Q6HRRT Azithromycin [Zithromax] 500 mg Med 08/07/17 12:45 Ordered Sodium Chloride 0.9% [Normal Saline] 250 ml IV Q24H Budesonide [Pulmicort] Med 08/07/17 13:00 Ordered 0.5 mg NEB BIDRT ClonazePAM [KlonoPIN] Med 08/07/17 12:54 Ordered 0.5 mg PO TID PRN Ipratropium [Atrovent] Med 08/07/17 12:36 Ordered 0.5 mg NEB .Q4H PRN Losartan [Cozaar] Med 08/07/17 21:00 Ordered 100 mg PO BEDTIME Meclizine HCl [Antivert] Med 08/08/17 09:00 Ordered 25 mg PO DAILY NIFEdipine [Procardia XL] Med 08/08/17 09:00 Ordered 30 mg PO DAILY Sertraline [Zoloft] Med 08/08/17 09:00 Ordered 100 mg PO DAILY Sodium Chloride 0.9% [Saline Flush] Med 08/07/17 12:56 Ordered 10 ml FLUSH ASDIRECTED PRN Sodium Chloride 0.9% with KCl 20 mEq @ 75 mL/Hr (1000 Med 08/07/17 13:15 Ordered mL) NS + KCl 20mEq/L [Normal Saline with 20 mEq KCl] 1,000 ml IV ASDIRECTED Venlafaxine [Venlafaxine HCl ER] Med 08/08/17 09:00 Ordered 150 mg PO DAILY Zolpidem [Ambien] Med 08/07/17 12:56 Ordered 5 mg PO BEDTIME PRN busPIRone HCl [busPIRone] Med 08/08/17 09:00 Ordered 30 mg PO DAILY cefTRIAXone [Rocephin] Med 08/07/17 12:00 Active 1 gm IVPUSH Q24H methylPREDNISolone Sod Succ [Solu-MEDROL] Med 08/07/17 12:45 Ordered 40 mg IVPUSH Q8H Antiembolic Hose [OM.PC] Per Unit Routine Oth 08/07/17 12:56 Ordered Blood Culture x2 Reflex Set [OM.PC] Stat Oth 08/07/17 12:32 Ordered Peripheral IV Insertion Adult [OM.PC] Routine Oth 08/07/17 12:56 Ordered Saline Lock Insert [OM.PC] Routine Oth 08/07/17 12:56 Ordered Resuscitation Status Routine Resus Stat 08/07/17 12:56 Ordered Medication Orders Albuterol/Ipratropium (Duoneb 3.0-0.5 Mg/3 Ml) 3 ml NEB Q6HRRT TIMA Budesonide (Pulmicort) 0.5 mg NEB BIDRT TIMA Buspirone HCl (Buspar) 30 mg PO DAILY TIMA Ceftriaxone Sodium (Rocephin) 1 gm IVPUSH Q24H TIMA Clonazepam (Klonopin) 0.5 mg PO TID PRN PRN Reason: Anxiety Azithromycin 500 mg/ Sodium (Chloride) 250 mls @ 250 mls/hr IV Q24H TIMA Potassium Chloride/Sodium Chloride (Normal Saline With 20 Meq Kcl) 1,000 mls @ 75 mls/hr IV ASDIRECTED TIMA Ipratropium [place] (Atrovent) 0.5 mg NEB Q4H PRN PRN Reason: sob Losartan Potassium (Cozaar) 100 mg PO BEDTIME TIMA Meclizine HCl (Antivert) 25 mg PO DAILY TIMA Methylprednisolone Sodium Succinate (Solu-Medrol) 40 mg IVPUSH Q8HR TIMA Nifedipine (Procardia Xl) 30 mg PO DAILY TIMA Non-Formulary Medication (Aripiprazole [Aripiprazole]) 10 mg PO DAILY TIMA Sertraline HCl (Zoloft) 100 mg PO DAILY TIMA Sodium Chloride (Saline Flush) 10 ml FLUSH ASDIRECTED PRN PRN Reason: Keep Vein Open Venlafaxine HCl (Venlafaxine Hcl Er) 150 mg PO DAILY TIMA Zolpidem Tartrate (Ambien) 5 mg PO BEDTIME PRN PRN Reason: Sleep Assessment/Plan Comment:: The patient is a 47-year-old lady with a history of asthma, anxiety, hypertension who presented with cough, shortness of breath, hypoxemia. #1 hypoxemic respiratory failure Treat with oxygen as needed During the night use CPAP for obstructive sleep apnea #2 acute asthma exacerbation We'll treat with inhaled and systemic steroids Use DuoNeb scheduled Use Atrovent as needed #3 concern for upper respiratory tract infection The patient had the close contact with family member with similar symptoms Will obtain chest x-ray Obtain lactic acid, urine culture, blood culture, sputum culture, influenza swab Hydrate the patient with IV fluids Empirically started azithromycin and Rocephin #4 hypertension Treat with nifedipine and Cozaar Monitor blood pressure #5 anxiety Continue the patient on clonazepam Zoloft Abilify #6 DVT prophylaxis with subcutaneous heparin
[2017-08-07 13:14] LABS: CHLORIDE,CL 101 mmol/L (101-111); SODIUM,NA 135 mmol/L (135-145)
[2017-08-07] MEDS: NS + KCl 20mEq/L 1,000 ML IV SCH (13:40)
[2017-08-07] MEDS: cefTRIAXone 1 GM Vial IVPUSH SCH (13:41)
[2017-08-07] MEDS: methylPREDNISolone Sodium Succinate 40 MG/1 ML SDV IVPUSH SCH ×2 (13:46→21:39)
[2017-08-07] MEDS: Albuterol/Ipratropium 3.0-0.5 MG/3 ML Neb Soln NEB SCH ×2 (13:53→19:16)
[2017-08-07] MEDS: ClonazePAM 0.5 MG Tab PO PRN ×2 (13:53→21:46)
[2017-08-07] MEDS: guaiFENesin/Dextromethorphan 100-10 MG/5 ML Soln 5 ML Cup PO PRN ×2 (13:54→21:45)
[2017-08-07] MEDS: Budesonide 0.5 MG/2 ML Neb Susp NEB SCH ×2 (13:54→18:40)
[2017-08-07] MEDS: Azithromycin 500 MG in Sodium Chloride 0.9% 250 ML IV SCH (14:15)
--- NOTE | 2017-08-07 14:16 | CR ---
CLINICAL HISTORY: 47-year-old female complaining of shortness of breath. INTERPRETATION: Less than optimal inspiratory effort obese female crowds and accentuates the lung mar kings centrally. Normal cardiac silhouette without new cephalization of vascular flow, signs of alveolar edema or depe ndent pleural effusion when compared to 15 July 2017 exam. No new lung mass, hilar lymphadenopathy or focal lobar pneumonia. No atelectasis/collapse. No pneumothorax. Neftaly thorax unremarkable. CONCLUSION: No signs of heart failure, lobar pneumonia or atelectasis.
[2017-08-07] MEDS ORDERED: Potassium Chloride 10 MEQ Tab.ER PO ONE (14:32)
[2017-08-07] MEDS: Acetaminophen 325 MG Tab PO PRN (14:33)
[2017-08-07] MEDS: Losartan 50 MG Tab PO SCH (21:37)
[2017-08-08] MEDS: Albuterol/Ipratropium 3.0-0.5 MG/3 ML Neb Soln NEB SCH ×4 (01:09→18:50)
[2017-08-08] MEDS: NS + KCl 20mEq/L 1,000 ML IV SCH ×2 (03:43→18:46)
[2017-08-08] MEDS: Ipratropium 0.02% 0.5 MG/2.5 ML Neb Soln NEB PRN ×2 (03:49→14:40)
[2017-08-08] MEDS: Acetaminophen 325 MG Tab PO PRN ×2 (03:49→08:29)
[2017-08-08] MEDS: guaiFENesin/Dextromethorphan 100-10 MG/5 ML Soln 5 ML Cup PO PRN ×3 (03:49→22:12)
[2017-08-08] MEDS ORDERED: Albuterol/Ipratropium 3.0-0.5 MG/3 ML Neb Soln NEB ONE (04:08)
[2017-08-08] MEDS ORDERED: methylPREDNISolone Sodium Succinate 40 MG/1 ML SDV IVPUSH ONE (04:09)
[2017-08-08] MEDS: methylPREDNISolone Sodium Succinate 40 MG/1 ML SDV IVPUSH SCH ×3 (05:50→22:12)
[2017-08-08] MEDS: Budesonide 0.5 MG/2 ML Neb Susp NEB SCH ×2 (07:26→19:40)
[2017-08-08] MEDS: Meclizine 12.5 MG Tab PO SCH (08:27)
[2017-08-08] MEDS: busPIRone 15 MG Tab PO SCH ×2 (08:27→14:28)
[2017-08-08] MEDS: Venlafaxine 150 MG CAP.ER PO SCH (08:28)
[2017-08-08] MEDS: Sertraline 50 MG Tab PO SCH (08:29)
[2017-08-08] MEDS: NIFEdipine 30 MG Tab.ER PO SCH (08:32)
--- NOTE | 2017-08-08 11:00 | PCM.PN ---
- General Info Admission Dx/Problem (Free Text): Admission Diagnosis/Problem Admission Diagnosis/Problem Hypoxemia Functional Status: Reports: Pain Controlled - Review of Systems General: Reports: No Symptoms HEENT: Reports: No Symptoms Pulmonary: Reports: No Symptoms Cardiovascular: Reports: No Symptoms Gastrointestinal: Reports: No Symptoms Genitourinary: Reports: No Symptoms Musculoskeletal: Reports: No Symptoms Skin: Reports: No Symptoms Neurological: Reports: No Symptoms Psychiatric: Reports: No Symptoms - Patient Data Vitals - Most Recent: Last Vital Signs Temp 98.6 F 08/08/17 08:26 Pulse 63 08/08/17 08:26 Resp 16 08/08/17 08:26 BP 105/50 L 08/08/17 08:32 Pulse Ox 90 L 08/08/17 08:26 Weight - Most Recent: 242 lb I&O - Last 24 Hours: Intake & Output 08/07/17 08/08/17 08/08/17 22:59 06:59 14:59 Intake Total 1470 Output Total 1400 450 Balance 70 -450 Lab Results Last 24 Hours: Laboratory Results - last 24 hr 08/07/17 08/07/17 08/07/17 Range/Units 12:43 12:43 12:43 WBC 6.7 (5.0-10.0) 10^3/uL RBC 4.44 (4.2-5.4) 10^6/uL Hgb 12.3 (12.0-16.0) g/dL Hct 38.2 (37.0-47.0) % MCV 86.0 (80-100) fL MCH 27.7 (27.0-34.0) pg MCHC 32.2 L (33.0-35.0) g/dL Plt Count 319 (150-450) 10^3/uL Neut % (Auto) 69.3 (42.2-75.2) % Lymph % (Auto) 19.2 L (20.5-50.1) % [place] % (Auto) 8.6 H (2-8) % Eos % (Auto) 2.6 (1.0-3.0) % Baso % (Auto) 0.3 (0.0-1.0) % Sodium 135 (135-145) mmol/L Potassium 3.5 L (3.6-5.0) mmol/L Chloride 101 (101-111) mmol/L Carbon Dioxide 24.0 (21.0-31.0) mmol/L Anion Gap 13.5 BUN 11 (7-18) mg/dL Creatinine 0.6 (0.6-1.3) mg/dL Est Cr Clr Drug Dosing TNP Estimated GFR (MDRD) > 60 Glucose 123 H (74-105) mg/dL Lactic Acid 1.3 (0.5-2.2) mmol/L Calcium 8.7 (8.4-10.2) mg/dl Urine Color (YELLOW) Urine Appearance (CLEAR) Urine pH (5.0-9.0) Ur Specific [place] (1.005-1.030) Urine Protein (NEGATIVE) Urine Glucose (UA) (NEGATIVE) Urine Ketones (NEGATIVE) Urine Occult Blood (NEGATIVE) Urine Nitrite (NEGATIVE) Urine Bilirubin (NEGATIVE) Urine Urobilinogen (0.2-1.0) mg/dL Ur Leukocyte Esterase (NEGATIVE) Urine RBC /HPF Urine WBC (0-5/HPF) /HPF Ur Epithelial Cells /HPF Urine Bacteria (0-FEW/HPF) /HPF Urine Mucus /LPF /08/21 Range/Units 13:10 WBC (5.0-10.0) 10^3/uL RBC (4.2-5.4) 10^6/uL Hgb (12.0-16.0) g/dL Hct (37.0-47.0) % MCV (80-100) fL MCH (27.0-34.0) pg MCHC (33.0-35.0) g/dL Plt Count (150-450) 10^3/uL Neut % (Auto) (42.2-75.2) % Lymph % (Auto) (20.5-50.1) % [place] % (Auto) (2-8) % Eos % (Auto) (1.0-3.0) % Baso % (Auto) (0.0-1.0) % Sodium (135-145) mmol/L Potassium (3.6-5.0) mmol/L Chloride (101-111) mmol/L Carbon Dioxide (21.0-31.0) mmol/L Anion Gap BUN (7-18) mg/dL Creatinine (0.6-1.3) mg/dL Est Cr Clr Drug Dosing Estimated GFR (MDRD) Glucose (74-105) mg/dL Lactic Acid (0.5-2.2) mmol/L Calcium (8.4-10.2) mg/dl Urine Color Yellow (YELLOW) Urine Appearance Clear (CLEAR) Urine pH 6.5 (5.0-9.0) Ur Specific [place] 1.020 (1.005-1.030) Urine Protein Trace H (NEGATIVE) Urine Glucose (UA) Negative (NEGATIVE) Urine Ketones Trace H (NEGATIVE) Urine Occult Blood Negative (NEGATIVE) Urine Nitrite Negative (NEGATIVE) Urine Bilirubin Small H (NEGATIVE) Urine Urobilinogen 1.0 (0.2-1.0) mg/dL Ur Leukocyte Esterase Negative (NEGATIVE) Urine RBC 0-5 /HPF Urine WBC 0-5 (0-5/HPF) /HPF Ur Epithelial Cells Many H /HPF Urine Bacteria Moderate H (0-FEW/HPF) /HPF Urine Mucus Many H /LPF [place] Results Last 24 Hours: Microbiology 08/07/17 13:20 Influenza Type A Antigen Screen - Final Nasal, Left NEGATIVE INFLUENZA A VIRUS AG Influenza Type B Antigen Screen - Final NEGATIVE INFLUENZA B VIRUS AG Med Orders - Current: Current Medications Acetaminophen (Tylenol) 650 mg PO Q4H PRN PRN Reason: Headache, pain Last Admin: 08/08/17 08:29 Dose: 650 mg Albuterol/Ipratropium (Duoneb 3.0-0.5 Mg/3 Ml) 3 ml NEB Q6HRRT [facility] Last Admin: 08/08/17 07:31 Dose: 3 ml Budesonide (Pulmicort) 0.5 mg NEB BIDRT [facility] Last Admin: 08/08/17 07:26 Dose: 0.5 mg Buspirone HCl (Buspar) 30 mg PO DAILY [facility] Last Admin: 08/08/17 08:27 Dose: 30 mg Ceftriaxone Sodium (Rocephin) 1 gm IVPUSH Q24H [facility] Last Admin: 08/07/17 13:41 Dose: 1 gm Clonazepam (Klonopin) 0.5 mg PO TID PRN PRN Reason: Anxiety Last Admin: 08/07/17 21:46 Dose: 0.5 mg Guaifenesin/Phenylephrine HCl (Robitussin Dm) 10 ml PO Q6H PRN PRN Reason: Cough Last Admin: 08/08/17 03:49 Dose: 10 ml Azithromycin 500 mg/ Sodium (Chloride) 250 mls @ 250 mls/hr IV Q24H [facility] Last Infusion: 08/07/17 17:30 Dose: Infused Potassium Chloride/Sodium Chloride (Normal Saline With 20 Meq Kcl) 1,000 mls @ 75 mls/hr IV ASDIRECTED [facility] Last Admin: 08/08/17 03:43 Dose: 75 mls/hr Ipratropium [place] (Atrovent) 0.5 mg NEB Q4H PRN PRN Reason: sob Last Admin: 08/08/17 03:49 Dose: 0.5 mg Losartan Potassium (Cozaar) 100 mg PO BEDTIME [facility] Last Admin: 08/07/17 21:37 Dose: 100 mg Meclizine HCl (Antivert) 25 mg PO DAILY [facility] Last Admin: 08/08/17 08:27 Dose: 25 mg Methylprednisolone Sodium Succinate (Solu-Medrol) 40 mg IVPUSH Q8HR [facility] Last Admin: 08/08/17 05:50 Dose: Not Given Nifedipine (Procardia Xl) 30 mg PO DAILY [facility] Last Admin: 08/08/17 08:32 Dose: 30 mg Non-Formulary Medication (Aripiprazole [Aripiprazole]) 10 mg PO DAILY [facility] Sertraline HCl (Zoloft) 100 mg PO DAILY [facility] Last Admin: 08/08/17 08:29 Dose: 100 mg Sodium Chloride (Saline Flush) 10 ml FLUSH ASDIRECTED PRN PRN Reason: Keep Vein Open Venlafaxine HCl (Venlafaxine Hcl Er) 150 mg PO DAILY [facility] Last Admin: 08/08/17 08:28 Dose: 150 mg Zolpidem Tartrate (Ambien) 5 mg PO BEDTIME PRN PRN Reason: Sleep Discontinued Medications Albuterol/Ipratropium (Duoneb 3.0-0.5 Mg/3 Ml) 3 ml NEB ONETIME ONE Stop: 08/08/17 04:09 Last Admin: 08/08/17 04:10 Dose: 3 ml Methylprednisolone Sodium Succinate (Solu-Medrol) 40 mg IVPUSH ONETIME ONE Stop: 08/08/17 04:10 Last Admin: 08/08/17 04:12 Dose: 40 mg Potassium Chloride (Klor-Con 10) 40 meq PO ONETIME ONE Stop: 08/07/17 14:33 Last Admin: 08/07/17 15:17 Dose: 40 meq - Exam Quality Assessment: Supplemental Oxygen General: Alert, Oriented HEENT: Pupils Equal, Pupils Reactive, EOMI, Mucous Membr. Moist/[place] Neck: Supple Lungs: Clear to Auscultation, Normal Respiratory Effort Cardiovascular: Regular Rate, Regular Rhythm GI/Abdominal Exam: Normal Bowel Sounds, Soft, Non-Tender, No Organomegaly, No Distention, No Abnormal Bruit, No Mass, Pelvis Stable (Female) Exam: Normal External Exam, Normal Speculum Exam, Normal Bimanual Exam Back Exam: Normal Inspection, Full Range of Motion Extremities: Normal Inspection, Normal Range of Motion, Non-Tender, No Pedal Edema, Normal Capillary Refill Skin: Warm, Dry, Intact Wound/Incisions: Healing Well Neurological: No New Focal Deficit Psy/Mental Status: Alert, Normal Affect, Normal Mood - Problem List & Annotations (1) Chest pain SNOMED Code(s): 80768839 Code(s): R07.9 - CHEST PAIN, UNSPECIFIED Status: Acute Current Visit: No Qualifiers: Chest pain type: other chest pain Qualified Code(s): R07.89 - Other chest pain (2) Hypertension SNOMED Code(s): 86268259 Code(s): I10 - ESSENTIAL (PRIMARY) HYPERTENSION Status: Acute Current Visit: No Qualifiers: Hypertension type: essential hypertension Qualified Code(s): I10 - Essential (primary) hypertension (3) Hypertension SNOMED Code(s): 69757487 Code(s): I10 - ESSENTIAL (PRIMARY) HYPERTENSION Status: Acute Current Visit: No (4) Hypertensive heart disease SNOMED Code(s): 23946260 Code(s): I11.9 - HYPERTENSIVE HEART DISEASE WITHOUT HEART FAILURE Status: Acute Current Visit: No Qualifiers: Heart failure presence: without heart failure Qualified Code(s): I11.9 - Hypertensive heart disease without heart failure (5) Nonspecific chest pain SNOMED Code(s): 41295112 Code(s): R07.9 - CHEST PAIN, UNSPECIFIED Status: Acute Current Visit: No (6) Palpitations SNOMED Code(s): 35296755 Code(s): R00.2 - PALPITATIONS Status: Acute Current Visit: No (7) Postoperative pain SNOMED Code(s): 755840040 Code(s): G89.18 - OTHER ACUTE POSTPROCEDURAL PAIN Status: Acute Current Visit: No (8) UTI (urinary tract infection) SNOMED Code(s): 66264555 Code(s): N39.0 - URINARY TRACT INFECTION, SITE NOT SPECIFIED Status: Acute Current Visit: No - Problem List Review Problem List Initiated/Reviewed/Updated: Yes - Plan Plan:: The patient is a 47-year-old lady with a history of asthma, anxiety, hypertension who presented with cough, shortness of breath, hypoxemia. #1 hypoxemic respiratory failure -improving -Treat with oxygen as needed -During the night use CPAP for obstructive sleep apnea #2 acute asthma exacerbation -Continue inhaled and systemic steroids -Use DuoNeb scheduled -Use Atrovent as needed #3 concern for upper respiratory tract infection -The patient had the close contact with family member with similar symptoms -Hydrate the patient with IV fluids -Empirically started azithromycin and Rocephin #4 hypertension -on nifedipine and Cozaar -Monitor blood pressure #5 anxiety Continue the patient on clonazepam Zoloft Abilify #6 DVT prophylaxis with subcutaneous heparin
[2017-08-08] MEDS: cefTRIAXone 1 GM Vial IVPUSH SCH (12:42)
[2017-08-08] MEDS: Azithromycin 500 MG in Sodium Chloride 0.9% 250 ML IV SCH (12:49)
[2017-08-08] MEDS: ClonazePAM 0.5 MG Tab PO PRN (18:45)
[2017-08-08] MEDS: Losartan 50 MG Tab PO SCH (20:51)
[2017-08-08] MEDS ORDERED: Zolpidem 5 MG Tab PO PRN (21:35)
[2017-08-08] MEDS: Zolpidem 5 MG Tab PO PRN (22:16)
[2017-08-09] MEDS: Albuterol/Ipratropium 3.0-0.5 MG/3 ML Neb Soln NEB SCH ×4 (01:49→17:54)
[2017-08-09] MEDS: Acetaminophen 325 MG Tab PO PRN ×2 (05:36→19:21)
[2017-08-09] MEDS: methylPREDNISolone Sodium Succinate 40 MG/1 ML SDV IVPUSH SCH ×3 (05:38→22:05)
[2017-08-09] MEDS: guaiFENesin/Dextromethorphan 100-10 MG/5 ML Soln 5 ML Cup PO PRN ×3 (05:44→22:06)
[2017-08-09] MEDS: Budesonide 0.5 MG/2 ML Neb Susp NEB SCH ×2 (07:33→17:54)
[2017-08-09] MEDS: NS + KCl 20mEq/L 1,000 ML IV SCH (08:18)
[2017-08-09] MEDS: Meclizine 12.5 MG Tab PO SCH (08:51)
[2017-08-09] MEDS: Venlafaxine 150 MG CAP.ER PO SCH ×2 (08:52→09:04)
[2017-08-09] MEDS: Sertraline 50 MG Tab PO SCH (08:52)
[2017-08-09] MEDS: NIFEdipine 30 MG Tab.ER PO SCH (09:02)
[2017-08-09] MEDS: cefTRIAXone 1 GM Vial IVPUSH SCH (14:06)
[2017-08-09] MEDS: Azithromycin 500 MG in Sodium Chloride 0.9% 250 ML IV SCH (14:08)
--- NOTE | 2017-08-09 15:05 | PCM.PN ---
- General Info Admission Dx/Problem (Free Text): Admission Diagnosis/Problem Admission Diagnosis/Problem Hypoxemia Functional Status: Reports: Pain Controlled - Review of Systems General: Reports: No Symptoms HEENT: Reports: No Symptoms Pulmonary: Reports: No Symptoms Cardiovascular: Reports: No Symptoms Gastrointestinal: Reports: No Symptoms Genitourinary: Reports: No Symptoms Musculoskeletal: Reports: No Symptoms Skin: Reports: No Symptoms Neurological: Reports: No Symptoms Psychiatric: Reports: No Symptoms - Patient Data Vitals - Most Recent: Last Vital Signs Temp 97.7 F 08/09/17 11:09 Pulse 78 08/09/17 11:09 Resp 20 08/09/17 11:09 BP 146/83 H 08/09/17 11:09 Pulse Ox 97 08/09/17 11:09 Weight - Most Recent: 242 lb I&O - Last 24 Hours: Intake & Output 08/09/17 08/09/17 08/09/17 06:59 14:59 22:59 Intake Total 3150 1300 Balance 3150 1300 [place] Results Last 24 Hours: Microbiology 08/07/17 12:47 Aerobic Blood Culture - Preliminary Blood - Venous - Lab Draw NO GROWTH AFTER 2 DAYS Anaerobic Blood Culture - Preliminary NO GROWTH AFTER 2 DAYS 08/07/17 12:43 Aerobic Blood Culture - Preliminary Blood - Venous NO GROWTH AFTER 2 DAYS Anaerobic Blood Culture - Preliminary NO GROWTH AFTER 2 DAYS 08/07/17 13:10 Urine Culture - Final Urine, Voided Mixed Uro-Genital Lydia 08/08/17 19:11 Gram Stain - Final Sputum - Expectorated Med Orders - Current: Current Medications Acetaminophen (Tylenol) 650 mg PO Q4H PRN PRN Reason: Headache, pain Last Admin: 08/09/17 05:36 Dose: 650 mg Albuterol/Ipratropium (Duoneb 3.0-0.5 Mg/3 Ml) 3 ml NEB Q6HRRT [facility] Last Admin: 08/09/17 12:48 Dose: 3 ml Budesonide (Pulmicort) 0.5 mg NEB BIDRT [facility] Last Admin: 08/09/17 07:33 Dose: 0.5 mg Ceftriaxone Sodium (Rocephin) 1 gm IVPUSH Q24H [facility] Last Admin: 08/09/17 14:06 Dose: 1 gm Clonazepam (Klonopin) 0.5 mg PO TID PRN PRN Reason: Anxiety Last Admin: 08/08/17 18:45 Dose: 0.5 mg Guaifenesin/Phenylephrine HCl (Robitussin Dm) 10 ml PO Q6H PRN PRN Reason: Cough Last Admin: 08/09/17 14:58 Dose: 10 ml Azithromycin 500 mg/ Sodium (Chloride) 250 mls @ 250 mls/hr IV Q24H [facility] Last Admin: 08/09/17 14:08 Dose: 250 mls/hr Potassium Chloride/Sodium Chloride (Normal Saline With 20 Meq Kcl) 1,000 mls @ 75 mls/hr IV ASDIRECTED [facility] Last Admin: 08/09/17 08:18 Dose: 75 mls/hr Ipratropium [place] (Atrovent) 0.5 mg NEB Q4H PRN PRN Reason: sob Last Admin: 08/08/17 14:40 Dose: 0.5 mg Losartan Potassium (Cozaar) 100 mg PO BEDTIME [facility] Last Admin: 08/08/17 20:51 Dose: 100 mg Meclizine HCl (Antivert) 25 mg PO DAILY [facility] Last Admin: 08/09/17 08:51 Dose: 25 mg Methylprednisolone Sodium Succinate (Solu-Medrol) 40 mg IVPUSH Q8HR [facility] Last Admin: 08/09/17 14:06 Dose: 40 mg Nifedipine (Procardia Xl) 30 mg PO DAILY [facility] Last Admin: 08/09/17 09:02 Dose: 30 mg Non-Formulary Medication (Aripiprazole [Aripiprazole]) 10 mg PO DAILY [facility] Sertraline HCl (Zoloft) 100 mg PO DAILY [facility] Last Admin: 08/09/17 08:52 Dose: 100 mg Sodium Chloride (Saline Flush) 10 ml FLUSH ASDIRECTED PRN PRN Reason: Keep Vein Open Venlafaxine HCl (Venlafaxine Hcl Er) 150 mg PO DAILY [facility] Last Admin: 08/09/17 09:04 Dose: 150 mg Zolpidem Tartrate (Ambien) 5 mg PO BEDTIME PRN PRN Reason: Sleep Last Admin: 08/08/17 22:16 Dose: 5 mg Discontinued Medications Albuterol/Ipratropium (Duoneb 3.0-0.5 Mg/3 Ml) 3 ml NEB ONETIME ONE Stop: 08/08/17 04:09 Last Admin: 08/08/17 04:10 Dose: 3 ml Buspirone HCl (Buspar) 30 mg PO DAILY [facility] Last Admin: 08/08/17 14:28 Dose: Not Given Methylprednisolone Sodium Succinate (Solu-Medrol) 40 mg IVPUSH ONETIME ONE Stop: 08/08/17 04:10 Last Admin: 08/08/17 04:12 Dose: 40 mg Potassium Chloride (Klor-Con 10) 40 meq PO ONETIME ONE Stop: 08/07/17 14:33 Last Admin: 08/07/17 15:17 Dose: 40 meq - Exam Quality Assessment: Supplemental Oxygen General: Alert, Oriented HEENT: Pupils Equal Neck: Supple Lungs: Clear to Auscultation, Normal Respiratory Effort Cardiovascular: Regular Rate, Regular Rhythm GI/Abdominal Exam: Normal Bowel Sounds, Soft, Non-Tender, No Organomegaly, No Distention, No Abnormal Bruit, No Mass, Pelvis Stable (Female) Exam: Normal External Exam, Normal Speculum Exam, Normal Bimanual Exam Back Exam: Normal Inspection, Full Range of Motion Extremities: Normal Inspection, Normal Range of Motion, Non-Tender, No Pedal Edema, Normal Capillary Refill Skin: Warm, Dry, Intact Wound/Incisions: Healing Well Neurological: No New Focal Deficit Psy/Mental Status: Alert, Normal Affect, Normal Mood - Problem List & Annotations (1) Chest pain SNOMED Code(s): 98385315 Code(s): R07.9 - CHEST PAIN, UNSPECIFIED Status: Acute Current Visit: No Qualifiers: Chest pain type: other chest pain Qualified Code(s): R07.89 - Other chest pain (2) Hypertension SNOMED Code(s): 49042824 Code(s): I10 - ESSENTIAL (PRIMARY) HYPERTENSION Status: Acute Current Visit: No Qualifiers: Hypertension type: essential hypertension Qualified Code(s): I10 - Essential (primary) hypertension (3) Hypertension SNOMED Code(s): 59058887 Code(s): I10 - ESSENTIAL (PRIMARY) HYPERTENSION Status: Acute Current Visit: No (4) Hypertensive heart disease SNOMED Code(s): 57196868 Code(s): I11.9 - HYPERTENSIVE HEART DISEASE WITHOUT HEART FAILURE Status: Acute Current Visit: No Qualifiers: Heart failure presence: without heart failure Qualified Code(s): I11.9 - Hypertensive heart disease without heart failure (5) Nonspecific chest pain SNOMED Code(s): 55695523 Code(s): R07.9 - CHEST PAIN, UNSPECIFIED Status: Acute Current Visit: No (6) Palpitations SNOMED Code(s): 57203544 Code(s): R00.2 - PALPITATIONS Status: Acute Current Visit: No (7) Postoperative pain SNOMED Code(s): 940469462 Code(s): G89.18 - OTHER ACUTE POSTPROCEDURAL PAIN Status: Acute Current Visit: No (8) UTI (urinary tract infection) SNOMED Code(s): 39774038 Code(s): N39.0 - URINARY TRACT INFECTION, SITE NOT SPECIFIED Status: Acute Current Visit: No - Problem List Review Problem List Initiated/Reviewed/Updated: Yes - Plan Plan:: The patient is a 47-year-old lady with a history of asthma, anxiety, hypertension who presented with cough, shortness of breath, hypoxemia. #1 hypoxemic respiratory failure -improving -Continue oxygen as needed and wean off as tolerated -During the night use CPAP for obstructive sleep apnea #2 acute asthma exacerbation -Continue inhaled and systemic steroids -Use DuoNeb scheduled -Use Atrovent as needed #3 concern for upper respiratory tract infection -The patient had the close contact with family member with similar symptoms -Hydrate the patient with IV fluids -Empirically started azithromycin and Rocephin #4 hypertension -on nifedipine and Cozaar -Monitor blood pressure #5 anxiety Continue the patient on clonazepam Zoloft Abilify #6 DVT prophylaxis with subcutaneous heparin
[2017-08-09] MEDS: ARIPIPRAZOLE 10 MG PO SCH ×2 (17:38→17:47)
[2017-08-09] MEDS: ClonazePAM 0.5 MG Tab PO PRN (18:12)
[2017-08-09] MEDS: Losartan 50 MG Tab PO SCH (20:27)
[2017-08-09] MEDS: Zolpidem 5 MG Tab PO PRN (22:06)
[2017-08-10] MEDS: NS + KCl 20mEq/L 1,000 ML IV SCH (00:12)
[2017-08-10] MEDS: Albuterol/Ipratropium 3.0-0.5 MG/3 ML Neb Soln NEB SCH ×4 (02:01→17:39)
[2017-08-10] MEDS: methylPREDNISolone Sodium Succinate 40 MG/1 ML SDV IVPUSH SCH ×3 (06:03→22:18)
[2017-08-10] MEDS: Budesonide 0.5 MG/2 ML Neb Susp NEB SCH ×2 (07:13→17:39)
[2017-08-10] MEDS: ClonazePAM 0.5 MG Tab PO PRN ×2 (07:50→16:15)
[2017-08-10] MEDS: Acetaminophen 325 MG Tab PO PRN ×3 (07:50→20:59)
[2017-08-10] MEDS: guaiFENesin/Dextromethorphan 100-10 MG/5 ML Soln 5 ML Cup PO PRN ×2 (07:58→16:15)
[2017-08-10] MEDS: Meclizine 12.5 MG Tab PO SCH (09:50)
[2017-08-10] MEDS: Sertraline 50 MG Tab PO SCH (09:51)
[2017-08-10] MEDS: Venlafaxine 150 MG CAP.ER PO SCH (09:51)
[2017-08-10] MEDS: NIFEdipine 30 MG Tab.ER PO SCH (09:52)
[2017-08-10] MEDS: ARIPIPRAZOLE 10 MG PO SCH (09:52)
[2017-08-10] MEDS: Ipratropium 0.02% 0.5 MG/2.5 ML Neb Soln NEB PRN (09:53)
[2017-08-10 10:10] LABS: CHLORIDE,CL 104 mmol/L (101-111); SODIUM,NA 138 mmol/L (135-145)
[2017-08-10] MEDS: cefTRIAXone 1 GM Vial IVPUSH SCH (11:01)
[2017-08-10] MEDS: Benzonatate 100 MG Cap PO PRN ×2 (11:02→21:00)
[2017-08-10] MEDS: Levofloxacin 500 MG Tab PO SCH (11:02)
--- NOTE | 2017-08-10 12:03 | PCM.PN ---
- General Info Date of Service: 08/10/17 Admission Dx/Problem (Free Text): Admission Diagnosis/Problem Admission Diagnosis/Problem Hypoxemia Subjective Update: The patient is a 47-year-old lady with a history of asthma, anxiety, hypertension who presented with cough, shortness of breath, hypoxemia. She was admitted for possible URTI and acute asthma attack. Her oxygen requirement has decreased. She was saturating at 95% on RA this morning. She continue to cough otherwise she feels generally better. Functional Status: Reports: Pain Controlled - Review of Systems General: Reports: No Symptoms HEENT: Reports: No Symptoms Pulmonary: Reports: Cough Cardiovascular: Reports: No Symptoms Gastrointestinal: Reports: No Symptoms Genitourinary: Reports: No Symptoms Musculoskeletal: Reports: No Symptoms Skin: Reports: No Symptoms Neurological: Reports: No Symptoms - Patient Data Vitals - Most Recent: Last Vital Signs Temp 98.8 F 08/10/17 07:34 Pulse 73 08/10/17 09:59 Resp 22 H 08/10/17 07:34 BP 150/114 H 08/10/17 09:52 Pulse Ox 95 08/10/17 07:34 Weight - Most Recent: 242 lb I&O - Last 24 Hours: Intake & Output 08/09/17 08/10/17 08/10/17 22:59 06:59 14:59 Intake Total 425 1198 724 Balance 425 1198 724 Lab Results Last 24 Hours: Laboratory Results - last 24 hr 08/10/17 08/10/17 Range/Units 09:40 09:40 WBC 12.0 H (5.0-10.0) 10^3/uL RBC 4.21 (4.2-5.4) 10^6/uL Hgb 11.8 L (12.0-16.0) g/dL Hct 37.3 (37.0-47.0) % MCV 88.6 (80-100) fL MCH 28.0 (27.0-34.0) pg MCHC 31.6 L (33.0-35.0) g/dL Plt Count 314 (150-450) 10^3/uL Neut % (Auto) 89.5 H (42.2-75.2) % Lymph % (Auto) 7.7 L (20.5-50.1) % [place] % (Auto) 2.8 (2-8) % Eos % (Auto) 0.0 L (1.0-3.0) % Baso % (Auto) 0.0 (0.0-1.0) % Sodium 138 (135-145) mmol/L Potassium 4.0 (3.6-5.0) mmol/L Chloride 104 (101-111) mmol/L Carbon Dioxide 27.0 (21.0-31.0) mmol/L Anion Gap 11.0 BUN 10 (7-18) mg/dL Creatinine 0.6 (0.6-1.3) mg/dL Est Cr Clr Drug Dosing 111.51 mL/min Estimated GFR (MDRD) > 60 Glucose 238 H (74-105) mg/dL Calcium 8.6 (8.4-10.2) mg/dl Bryan Results Last 24 Hours: Microbiology 08/08/17 19:11 Gram Stain - Final Sputum - Expectorated Sputum Culture - Preliminary 08/07/17 12:47 Aerobic Blood Culture - Preliminary Blood - Venous - Lab Draw NO GROWTH AFTER 2 DAYS Anaerobic Blood Culture - Preliminary NO GROWTH AFTER 2 DAYS 08/07/17 12:43 Aerobic Blood Culture - Preliminary Blood - Venous NO GROWTH AFTER 2 DAYS Anaerobic Blood Culture - Preliminary NO GROWTH AFTER 2 DAYS 08/07/17 13:10 Urine Culture - Final Urine, Voided Mixed Uro-Genital Lydia Med Orders - Current: Current Medications Acetaminophen (Tylenol) 650 mg PO Q4H PRN PRN Reason: Headache, pain Last Admin: 08/10/17 07:50 Dose: 650 mg Albuterol/Ipratropium (Duoneb 3.0-0.5 Mg/3 Ml) 3 ml NEB Q6HRRT [facility] [place] Last Admin: 08/10/17 07:13 Dose: 3 ml Benzonatate (Tessalon Perles) 100 mg PO TID PRN PRN Reason: Cough Last Admin: 08/10/17 11:02 Dose: 100 mg Budesonide (Pulmicort) 0.5 mg NEB BIDRT [facility] [place] Last Admin: 08/10/17 07:13 Dose: 0.5 mg Ceftriaxone Sodium (Rocephin) 1 gm IVPUSH Q24H [facility] [place] Last Admin: 08/10/17 11:01 Dose: Not Given Clonazepam (Klonopin) 0.5 mg PO TID PRN PRN Reason: Anxiety Last Admin: 08/10/17 07:50 Dose: 0.5 mg Guaifenesin/Phenylephrine HCl (Robitussin Dm) 10 ml PO Q6H PRN PRN Reason: Cough Last Admin: 08/10/17 07:58 Dose: 10 ml Ipratropium [place] (Atrovent) 0.5 mg NEB Q4H PRN PRN Reason: sob Last Admin: 08/10/17 09:53 Dose: 0.5 mg Levofloxacin (Levaquin) 500 mg PO Q24H [facility] [place] Last Admin: 08/10/17 11:02 Dose: 500 mg Losartan Potassium (Cozaar) 100 mg PO BEDTIME TIAM Last Admin: 08/09/17 20:27 Dose: 100 mg Meclizine HCl (Antivert) 25 mg PO DAILY [facility] [place] Last Admin: 08/10/17 09:50 Dose: 25 mg Methylprednisolone Sodium Succinate (Solu-Medrol) 40 mg IVPUSH Q8HR [facility] [place] Last Admin: 08/10/17 06:03 Dose: 40 mg Nifedipine (Procardia Xl) 30 mg PO DAILY [facility] [place] Last Admin: 08/10/17 09:52 Dose: 30 mg Aripiprazole 10 Mg * (*Pt's Own Med) 0 each PO DAILY [facility] [place] Last Admin: 08/10/17 09:52 Dose: 1 each Sertraline HCl (Zoloft) 100 mg PO DAILY [facility] [place] Last Admin: 08/10/17 09:51 Dose: 100 mg Sodium Chloride (Saline Flush) 10 ml FLUSH ASDIRECTED PRN PRN Reason: Keep Vein Open Venlafaxine HCl (Venlafaxine Hcl Er) 150 mg PO DAILY [facility] [place] Last Admin: 08/10/17 09:51 Dose: 150 mg Zolpidem Tartrate (Ambien) 5 mg PO BEDTIME PRN PRN Reason: Sleep Last Admin: 08/09/17 22:06 Dose: 5 mg Discontinued Medications Albuterol/Ipratropium (Duoneb 3.0-0.5 Mg/3 Ml) 3 ml NEB ONETIME ONE Stop: 08/08/17 04:09 Last Admin: 08/08/17 04:10 Dose: 3 ml Buspirone HCl (Buspar) 30 mg PO DAILY [facility] [place] Last Admin: 08/08/17 14:28 Dose: Not Given Azithromycin 500 mg/ Sodium (Chloride) 250 mls @ 250 mls/hr IV Q24H [facility] [place] Last Infusion: 08/09/17 17:27 Dose: Infused Potassium Chloride/Sodium Chloride (Normal Saline With 20 Meq Kcl) 1,000 mls @ 75 mls/hr IV ASDIRECTED [facility] [place] Last Infusion: 08/10/17 09:55 Dose: 75 mls/hr Methylprednisolone Sodium Succinate (Solu-Medrol) 40 mg IVPUSH ONETIME ONE Stop: 08/08/17 04:10 Last Admin: 08/08/17 04:12 Dose: 40 mg Potassium Chloride (Klor-Con 10) 40 meq PO ONETIME ONE Stop: 08/07/17 14:33 Last Admin: 08/07/17 15:17 Dose: 40 meq - Exam Quality Assessment: Supplemental Oxygen, DVT Prophylaxis General: Alert, Oriented HEENT: Pupils Equal, Pupils Reactive, EOMI, Mucous Membr. Moist/[place] Neck: Supple Lungs: Clear to Auscultation, Normal Respiratory Effort Cardiovascular: Regular Rate, Regular Rhythm GI/Abdominal Exam: Normal Bowel Sounds, Soft, Non-Tender, No Organomegaly, No Distention, No Abnormal Bruit, No Mass, Pelvis Stable (Female) Exam: Normal External Exam, Normal Speculum Exam, Normal Bimanual Exam Back Exam: Normal Inspection, Full Range of Motion Extremities: Normal Inspection, Normal Range of Motion, Non-Tender, No Pedal Edema, Normal Capillary Refill Skin: Warm, Dry, Intact Wound/Incisions: Healing Well Neurological: No New Focal Deficit Psy/Mental Status: Alert, Normal Affect, Normal Mood - Problem List & Annotations (1) Chest pain SNOMED Code(s): 43055954 Code(s): R07.9 - CHEST PAIN, UNSPECIFIED Status: Acute Current Visit: No Qualifiers: Chest pain type: other chest pain Qualified Code(s): R07.89 - Other chest pain (2) Hypertension SNOMED Code(s): 72394966 Code(s): I10 - ESSENTIAL (PRIMARY) HYPERTENSION Status: Acute Current Visit: No Qualifiers: Hypertension type: essential hypertension Qualified Code(s): I10 - Essential (primary) hypertension (3) Hypertension SNOMED Code(s): 96655830 Code(s): I10 - ESSENTIAL (PRIMARY) HYPERTENSION Status: Acute Current Visit: No (4) Hypertensive heart disease SNOMED Code(s): 80666747 Code(s): I11.9 - HYPERTENSIVE HEART DISEASE WITHOUT HEART FAILURE Status: Acute Current Visit: No Qualifiers: Heart failure presence: without heart failure Qualified Code(s): I11.9 - Hypertensive heart disease without heart failure (5) Nonspecific chest pain SNOMED Code(s): 68478367 Code(s): R07.9 - CHEST PAIN, UNSPECIFIED Status: Acute Current Visit: No (6) Palpitations SNOMED Code(s): 20074977 Code(s): R00.2 - PALPITATIONS Status: Acute Current Visit: No (7) Postoperative pain SNOMED Code(s): 445749125 Code(s): G89.18 - OTHER ACUTE POSTPROCEDURAL PAIN Status: Acute Current Visit: No (8) UTI (urinary tract infection) SNOMED Code(s): 31196442 Code(s): N39.0 - URINARY TRACT INFECTION, SITE NOT SPECIFIED Status: Acute Current Visit: No - Problem List Review Problem List Initiated/Reviewed/Updated: Yes - My Orders Last 24 Hours: My Active Orders 08/10/17 09:48 Benzonatate [Tessalon Perles] 100 mg PO TID PRN 08/10/17 10:00 Levofloxacin [Levaquin] 500 mg PO Q24H - Plan Plan:: The patient is a 47-year-old lady with a history of asthma, anxiety, hypertension who presented with cough, shortness of breath, hypoxemia. #1 hypoxemic respiratory failure -improved -Continue oxygen as needed and wean off as tolerated -During the night use CPAP for obstructive sleep apnea #2 acute asthma exacerbation -Continue inhaled and systemic steroids -Use DuoNeb scheduled -Use Atrovent as needed #3 concern for upper respiratory tract infection -The patient had the close contact with family member with similar symptoms -wbc trended up slightly today -Hydrate the patient with IV fluids -will start Levaquin PO -D/c azithromycin and Rocephin #4 hypertension -on nifedipine and Cozaar -Monitor blood pressure #5 anxiety Continue the patient on clonazepam Zoloft Abilify #6 DVT prophylaxis with subcutaneous heparin
[2017-08-10] MEDS ORDERED: Calcium Carbonate 500 MG Tab.Chew PO PRN (12:48)
[2017-08-10] MEDS: Losartan 50 MG Tab PO SCH (20:57)
[2017-08-10] MEDS: Zolpidem 5 MG Tab PO PRN (22:19)
[2017-08-11] MEDS: Albuterol/Ipratropium 3.0-0.5 MG/3 ML Neb Soln NEB SCH ×2 (02:05→07:29)
[2017-08-11] MEDS: methylPREDNISolone Sodium Succinate 40 MG/1 ML SDV IVPUSH SCH (05:34)
[2017-08-11] MEDS: Budesonide 0.5 MG/2 ML Neb Susp NEB SCH (07:29)
[2017-08-11] MEDS: Meclizine 12.5 MG Tab PO SCH (09:04)
[2017-08-11] MEDS: NIFEdipine 30 MG Tab.ER PO SCH (09:04)
[2017-08-11] MEDS: Levofloxacin 500 MG Tab PO SCH (09:04)
[2017-08-11] MEDS: Sertraline 50 MG Tab PO SCH (09:05)
[2017-08-11] MEDS: Venlafaxine 150 MG CAP.ER PO SCH (09:05)
[2017-08-11] MEDS: ARIPIPRAZOLE 10 MG PO SCH (09:06)
[2017-08-11] MEDS: Benzonatate 100 MG Cap PO PRN (09:10)
[2017-08-11] MEDS: Ipratropium 0.02% 0.5 MG/2.5 ML Neb Soln NEB PRN (10:10)
--- NOTE | 2017-08-11 10:56 | PCM.DCSUM1 ---
Discharge Summary - Hospital Course Free Text/Narrative:: The patient is a 47-year-old lady with a history of asthma, anxiety, hypertension who presented with cough, shortness of breath, hypoxemia. She was admitted for possible URTI and acute asthma attack. Her oxygen requirement has decreased and she is now on RA. She was saturating at 95% on RA. She was managed with IV antibiotics, nebulization with significant improvement in her symptoms. This morning she was seen and she notes no complaints. Patient is stable for discharge. She will follow with her PCP. - Discharge Data Discharge Date: 08/11/17 Discharge Disposition: Home, Self-Care 01 Condition: Good - Discharge Diagnosis/Problem(s) (1) Chest pain SNOMED Code(s): 33491628 ICD Code: R07.9 - CHEST PAIN, UNSPECIFIED Status: Acute Current Visit: No Qualifiers: Chest pain type: other chest pain Qualified Code(s): R07.89 - Other chest pain (2) Hypertension SNOMED Code(s): 56489952 ICD Code: I10 - ESSENTIAL (PRIMARY) HYPERTENSION Status: Acute Current Visit: No Qualifiers: Hypertension type: essential hypertension Qualified Code(s): I10 - Essential (primary) hypertension (3) Hypertension SNOMED Code(s): 47720287 ICD Code: I10 - ESSENTIAL (PRIMARY) HYPERTENSION Status: Acute Current Visit: No (4) Hypertensive heart disease SNOMED Code(s): 90920293 ICD Code: I11.9 - HYPERTENSIVE HEART DISEASE WITHOUT HEART FAILURE Status: Acute Current Visit: No Qualifiers: Heart failure presence: without heart failure Qualified Code(s): I11.9 - Hypertensive heart disease without heart failure (5) Nonspecific chest pain SNOMED Code(s): 17137028 ICD Code: R07.9 - CHEST PAIN, UNSPECIFIED Status: Acute Current Visit: No (6) Palpitations SNOMED Code(s): 32290074 ICD Code: R00.2 - PALPITATIONS Status: Acute Current Visit: No (7) Postoperative pain SNOMED Code(s): 200591388 ICD Code: G89.18 - OTHER ACUTE POSTPROCEDURAL PAIN Status: Acute Current Visit: No (8) UTI (urinary tract infection) SNOMED Code(s): 87124299 ICD Code: N39.0 - URINARY TRACT INFECTION, SITE NOT SPECIFIED Status: Acute Current Visit: No - Patient Instructions Diet: Heart Healthy Diet Activity: As Tolerated Driving: May Drive Today Showering/Bathing: May Shower Notify Provider of: Fever, Increased Pain, Swelling and Redness, Nausea and/or Vomiting - Discharge Plan Prescriptions/Med Rec: Albuterol/Ipratropium [DuoNeb 3.0-0.5 MG/3 ML] 3 ml NEB Q4H PRN 30 Days #14 neb PRN Reason: Shortness Of Breath Dextromethorphan/guaiFENesin [Robitussin DM] 10 ml PO Q6H PRN 5 Days #1 cup PRN Reason: Cough Ipratropium [Atrovent] 0.5 mg NEB Q4H PRN 30 Days #14 neb PRN Reason: sob Levofloxacin [Levaquin] 500 mg PO Q24H 7 Days #7 tablet Home Medications: Home Meds Cetirizine [ZyrTEC] 10 mg PO DAILY PRN 05/23/15 [History] Losartan [Cozaar] 100 mg PO BEDTIME 05/23/15 [History] Sertraline HCl 100 mg PO DAILY 05/23/15 [History] Meclizine HCl [Antivert] 25 mg PO DAILY 10/07/15 [History] Levalbuterol Tartrate [Xopenex HFA] 1 mg PO DAILY 11/29/16 [History] Venlafaxine HCl [Venlafaxine ER] 150 mg PO DAILY 11/29/16 [History] ARIPiprazole [Aripiprazole] 10 mg PO DAILY 08/07/17 [History] ClonazePAM [KlonoPIN] 0.5 mg PO TID PRN 08/07/17 [History] Fluticasone/Salmeterol [Advair 500-50] 1 inh INH DAILY 08/07/17 [History] NIFEdipine [Nifedipine ER] 30 mg PO DAILY 08/07/17 [History] Acetaminophen [Tylenol] 650 mg PO Q6H PRN 5 Days #24 tablet 08/11/17 [Rx] Albuterol/Ipratropium [DuoNeb 3.0-0.5 MG/3 ML] 3 ml NEB Q4H PRN 30 Days #14 neb 08/11/17 [Rx] Budesonide [Pulmicort] 0.5 mg NEB BIDRT 30 Days #10 neb 08/11/17 [Rx] Dextromethorphan/guaiFENesin [Robitussin DM] 10 ml PO Q6H PRN 5 Days #1 cup 12/21 [Rx] Ipratropium [Atrovent] 0.5 mg NEB Q4H PRN 30 Days #14 neb 08/11/17 [Rx] Levofloxacin [Levaquin] 500 mg PO Q24H 7 Days #7 tablet 08/11/17 [Rx] Patient Handouts: Preventing Asthma Attacks From Indoor Allergens, Teen, Asthma , Adult, [id number], Albuterol; Ipratropium solution for inhalation, Asthma Attack Prevention, Adult - Discharge Summary/Plan Comment DC Time >30 min.: Yes - General Info Admission Dx/Problem (Free Text: Admission Diagnosis/Problem Admission Diagnosis/Problem Hypoxemia Subjective Update: The patient is a 47-year-old lady with a history of asthma, anxiety, hypertension who presented with cough, shortness of breath, hypoxemia. She was admitted for possible URTI and acute asthma attack. Her oxygen requirement has decreased. She was saturating at 95% on RA this morning. She continue to cough otherwise she feels generally better. Functional Status: Reports: Pain Controlled - Review of Systems General: Reports: No Symptoms HEENT: Reports: No Symptoms Pulmonary: Reports: Cough Cardiovascular: Reports: No Symptoms Gastrointestinal: Reports: No Symptoms Genitourinary: Reports: No Symptoms Musculoskeletal: Reports: No Symptoms Skin: Reports: No Symptoms Neurological: Reports: No Symptoms Psychiatric: Reports: No Symptoms - Patient Data Vitals - Most Recent: Last Vital Signs Temp 98.5 F 08/11/17 07:00 Pulse 84 08/11/17 07:31 Resp 18 08/11/17 07:00 BP 132/75 08/11/17 09:04 Pulse Ox 96 08/11/17 07:00 Weight - Most Recent: 242 lb I&O - Last 24 hours: Intake & Output 08/10/17 08/11/17 08/11/17 22:59 06:59 14:59 Intake Total 250 320 Output Total 400 Balance -150 320 NANDINI Results - Last 24 hrs: Microbiology 08/08/17 19:11 Gram Stain - Final Sputum - Expectorated Sputum Culture - Final Normal Lydia 08/07/17 12:47 Aerobic Blood Culture - Preliminary Blood - Venous - Lab Draw NO GROWTH AFTER 3 DAYS Anaerobic Blood Culture - Preliminary NO GROWTH AFTER 3 DAYS 08/07/17 12:43 Aerobic Blood Culture - Preliminary Blood - Venous NO GROWTH AFTER 3 DAYS Anaerobic Blood Culture - Preliminary NO GROWTH AFTER 3 DAYS Med Orders - Current: Current Medications Acetaminophen (Tylenol) 650 mg PO Q4H PRN PRN Reason: Headache, pain Last Admin: 08/10/17 20:59 Dose: 650 mg Albuterol/Ipratropium (Duoneb 3.0-0.5 Mg/3 Ml) 3 ml NEB Q6HRRT [facility] Last Admin: 08/11/17 07:29 Dose: 3 ml Benzonatate (Tessalon Perles) 100 mg PO TID PRN PRN Reason: Cough Last Admin: 08/11/17 09:10 Dose: 100 mg Budesonide (Pulmicort) 0.5 mg NEB BIDRT [facility] Last Admin: 08/11/17 07:29 Dose: 0.5 mg Calcium Carbonate/Glycine (Tums) 1,000 mg PO BID PRN PRN Reason: Heartburn Last Admin: 08/10/17 13:20 Dose: 1,000 mg Clonazepam (Klonopin) 0.5 mg PO TID PRN PRN Reason: Anxiety Last Admin: 08/10/17 16:15 Dose: 0.5 mg Guaifenesin/Phenylephrine HCl (Robitussin Dm) 10 ml PO Q6H PRN PRN Reason: Cough Last Admin: 08/10/17 16:15 Dose: 10 ml Ipratropium [place] (Atrovent) 0.5 mg NEB Q4H PRN PRN Reason: sob Last Admin: 08/11/17 10:10 Dose: 0.5 mg Levofloxacin (Levaquin) 500 mg PO Q24H [facility] Last Admin: 08/11/17 09:04 Dose: 500 mg Losartan Potassium (Cozaar) 100 mg PO BEDTIME [facility] Last Admin: 08/10/17 20:57 Dose: 100 mg Meclizine HCl (Antivert) 25 mg PO DAILY [facility] Last Admin: 08/11/17 09:04 Dose: 25 mg Methylprednisolone Sodium Succinate (Solu-Medrol) 40 mg IVPUSH Q8HR [facility] Last Admin: 08/11/17 05:34 Dose: 40 mg Nifedipine (Procardia Xl) 30 mg PO DAILY [facility] Last Admin: 08/11/17 09:04 Dose: 30 mg Aripiprazole 10 Mg * (*Pt's Own Med) 0 each PO DAILY [facility] Last Admin: 08/11/17 09:06 Dose: 10 each Sertraline HCl (Zoloft) 100 mg PO DAILY [facility] Last Admin: 08/11/17 09:05 Dose: 100 mg Sodium Chloride (Saline Flush) 10 ml FLUSH ASDIRECTED PRN PRN Reason: Keep Vein Open Last Admin: 08/10/17 13:23 Dose: 10 ml Venlafaxine HCl (Venlafaxine Hcl Er) 150 mg PO DAILY [facility] Last Admin: 08/11/17 09:05 Dose: 150 mg Zolpidem Tartrate (Ambien) 5 mg PO BEDTIME PRN PRN Reason: Sleep Last Admin: 08/10/17 22:19 Dose: 5 mg Discontinued Medications Albuterol/Ipratropium (Duoneb 3.0-0.5 Mg/3 Ml) 3 ml NEB ONETIME ONE Stop: 08/08/17 04:09 Last Admin: 08/08/17 04:10 Dose: 3 ml Buspirone HCl (Buspar) 30 mg PO DAILY [facility] Last Admin: 08/08/17 14:28 Dose: Not Given Ceftriaxone Sodium (Rocephin) 1 gm IVPUSH Q24H [facility] Last Admin: 08/10/17 11:01 Dose: Not Given Azithromycin 500 mg/ Sodium (Chloride) 250 mls @ 250 mls/hr IV Q24H [facility] Last Infusion: 08/09/17 17:27 Dose: Infused Potassium Chloride/Sodium Chloride (Normal Saline With 20 Meq Kcl) 1,000 mls @ 75 mls/hr IV ASDIRECTED [facility] Last Infusion: 08/10/17 09:55 Dose: 75 mls/hr Methylprednisolone Sodium Succinate (Solu-Medrol) 40 mg IVPUSH ONETIME ONE Stop: 08/08/17 04:10 Last Admin: 08/08/17 04:12 Dose: 40 mg Potassium Chloride (Klor-Con 10) 40 meq PO ONETIME ONE Stop: 08/07/17 14:33 Last Admin: 08/07/17 15:17 Dose: 40 meq - Exam Quality Assessment: Reports: DVT Prophylaxis General: Reports: Alert, Oriented HEENT: Reports: Pupils Equal, Pupils Reactive, EOMI, Mucous Membr. Moist/[place] Neck: Reports: Supple Lungs: Reports: Clear to Auscultation, Normal Respiratory Effort Cardiovascular: Reports: Regular Rate, Regular Rhythm GI/Abdominal Exam: Normal Bowel Sounds, Soft, Non-Tender, No Organomegaly, No Distention, No Abnormal Bruit, No Mass, Pelvis Stable (Female) Exam: Normal External Exam, Normal Speculum Exam, Normal Bimanual Exam Rectal (Female) Exam: Normal Exam, Normal Rectal Tone Back Exam: Reports: Normal Inspection, Full Range of Motion Extremities: Normal Inspection, Normal Range of Motion, Non-Tender, No Pedal Edema, Normal Capillary Refill Skin: Reports: Warm, Dry, Intact Wound/Incisions: Reports: Healing Well Neurological: Reports: No New Focal Deficit Psy/Mental Status: Reports: Alert, Normal Affect, Normal Mood
[2017-08-11 11:32] VITALS: BP 133/87
== END 2017-08-11 12:31 | disposition home or self-care (01) | DRG 202 ==
LOC: DL.MS 12:15 → OBSVTOIN 12:56 → DL.MS 12:56
PROVIDERS: ADMIT Internal Medicine; ATTEND Internal Medicine
DX: J45.901 Unspecified asthma with (acute) exacerbation (principal); J96.91 Respiratory failure, unspecified with hypoxia; N39.0 Urinary tract infection, site not specified; J06.9 Acute upper respiratory infection, unspecified; F41.9 Anxiety disorder, unspecified; I10 Essential (primary) hypertension; R07.89 Other chest pain; G89.18 Other acute postprocedural pain; G47.33 Obstructive sleep apnea (adult) (pediatric); H54.7 Unspecified visual loss; I49.9 Cardiac arrhythmia, unspecified; K52.9 Noninfective gastroenteritis and colitis, unspecified; M19.90 Unspecified osteoarthritis, unspecified site; I20.9 Angina pectoris, unspecified; E66.9 Obesity, unspecified; Z90.710 Acquired absence of both cervix and uterus; Z88.2 Allergy status to sulfonamides; Z79.899 Other long term (current) drug therapy; Z88.8 Allergy status to other drugs, medicaments and biological substances; Z91.040 Latex allergy status
CPT/HCPCS: 36415; 71046; 80048; 81001; 83605; 85025; 87040; 87070; 87086; 87205; 87804; 94640; A9270-GY; J0456; J0696; J2920; J3480; J7050

== ENCOUNTER 2017-10-09 19:52 | Emergency (ER) | payer MEDICAID ==
[2017-10-09] MEDS ORDERED: Ondansetron 4 MG/2 ML SDV IV ONE ×2 (20:55→21:43)
[2017-10-09] MEDS ORDERED: Sodium Chloride 0.9% 1,000 ML IV ONE (20:55)
[2017-10-09] MEDS ORDERED: Iopamidol 612 MG/ML 100 ML Bottle IVPUSH ONE (21:08)
--- NOTE | 2017-10-09 21:11 | EDM.PDOC ---
ED HPI GENERAL MEDICAL PROBLEM - General Chief Complaint: Gastrointestinal Problem Stated Complaint: [id number] VOMITTING Time Seen by Provider: 10/09/17 21:09 Source of Information: Reports: Patient History Limitations: Reports: No Limitations - History of Present Illness INITIAL COMMENTS - FREE TEXT/NARRATIVE: woke up feeling sick with abd pain ate @ [facility] felt worse with vomiting and pain worse. Abdomen Pain Score (Numeric/FACES): 8 - Related Data Allergies Allergy/AdvReac Type Severity Reaction Status Date / Time latex Allergy Redness Verified 08/07/17 12:44 lisinopril Allergy Cough Verified 08/07/17 12:44 Sulfa (Sulfonamide Allergy Rash Verified 08/07/17 12:44 Antibiotics) Home Meds: Home Meds Cetirizine [ZyrTEC] 10 mg PO DAILY PRN 05/23/15 [History] Losartan [Cozaar] 100 mg PO BEDTIME 05/23/15 [History] Levalbuterol Tartrate [Xopenex HFA] 1 mg PO DAILY 11/29/16 [History] Venlafaxine HCl [Venlafaxine ER] 150 mg PO DAILY 11/29/16 [History] ARIPiprazole [Aripiprazole] 10 mg PO DAILY 08/07/17 [History] ClonazePAM [KlonoPIN] 0.5 mg PO TID PRN 08/07/17 [History] Fluticasone/Salmeterol [Advair 500-50] 1 inh INH DAILY 08/07/17 [History] NIFEdipine [Nifedipine ER] 30 mg PO DAILY 08/07/17 [History] Acetaminophen [Tylenol] 650 mg PO Q6H PRN 5 Days #24 tablet 08/11/17 [Rx] Albuterol/Ipratropium [DuoNeb 3.0-0.5 MG/3 ML] 3 ml NEB Q4H PRN 30 Days #14 neb 08/11/17 [Rx] Budesonide [Pulmicort] 0.5 mg NEB BIDRT 30 Days #10 neb 08/11/17 [Rx] Ipratropium [Atrovent] 0.5 mg NEB Q4H PRN 30 Days #14 neb 08/11/17 [Rx] Past Medical History HEENT History: Reports: Impaired Vision Other HEENT History: LEFT EYE COMPLETE BLINDNESS Cardiovascular History: Reports: Angina, Arrhythmia, Hypertension, SOB on Exertion, Other (See Below) Other Cardiovascular History: HEART PALPITATIONS Respiratory History: Reports: Asthma, Sleep Apnea, SOB, Other (See Below) Other Respiratory History: ASTHMA WITH ALLERGIES Gastrointestinal History: Reports: Cholelithiasis, Chronic Diarrhea Genitourinary History: Reports: None MILD DISABILITIES 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: , 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 (See Below) Other OB/BYN History: UTERINE CYST Musculoskeletal History: Reports: Arthritis, Fracture Psychiatric History: Reports: Anxiety, Panic Attack Endocrine/Metabolic History: Reports: Obesity/BMI 30+ Hematologic History: Reports: Other (See Below) Other Hematologic History: POTASSIUM SUPPLEMENTS Dermatologic History: Reports: Other (See Below) Other Dermatologic History: SENSITIVE SKIN - Infectious Disease History Infectious Disease History: Reports: Chicken Pox, Rheumatic Fever - Past Surgical History HEENT Surgical History: Reports: Eye Surgery Female Surgical History: Reports: Breast Biopsy, Hysterectomy, Tubal Ligation , Other (See Below) Endocrine Surgical History: Reports: None Neurological Surgical History: Reports: None Musculoskeletal Surgical History: Reports: Other (See Below) Oncologic Surgical History: Reports: Biopsy of Breast Social & Family History - Family History Family Medical History: Noncontributory - Tobacco Use Smoking Status *Q: Never Smoker Second Hand Smoke Exposure: Yes - Caffeine Use Caffeine Use: Reports: Soda, Tea - Recreational Drug Use Recreational Drug Use: No - Living Situation & Occupation Living situation: Reports: with Significant Other Occupation: Employed ED ROS GENERAL - Review of Systems Review Of Systems: ROS reveals no pertinent complaints other than HPI. ED EXAM, GI/ABD - Physical Exam Exam: See Below Exam Limited By: No Limitations General Appearance: Alert, WD/WN, Mild Distress, Other (abd pain) Ears: Hearing Grossly Normal Throat/Mouth: Normal Voice, No Airway Compromise Head: Atraumatic Neck: Non-Tender, Full Range of Motion Respiratory/Chest: No Respiratory Distress Cardiovascular: Regular Rate, Rhythm GI/Abdominal Exam: Guarding, Tender, Other (RLQ>). No: Distended, Rigid, Rebound Neurological: Alert, Oriented, Normal Cognition, Normal Gait, No Motor/Sensory Deficits Psychiatric: Tearful Skin Exam: Warm, Dry, Normal Color Lymphatic: No Adenopathy Course - Vital Signs Last Recorded V/S: Last Vital Signs Temp 37.3 C 10/09/17 23:34 Pulse 85 10/09/17 23:34 Resp 16 10/09/17 23:34 BP 123/80 10/09/17 23:34 Pulse Ox 97 10/09/17 23:34 - Orders/Labs/Meds Labs: Laboratory Tests 10/09/17 10/09/17 Range/Units 20:53 20:53 WBC 16.4 H (5.0-10.0) 10^3/uL RBC 4.76 (4.2-5.4) 10^6/uL Hgb 13.6 D (12.0-16.0) g/dL Hct 41.6 (37.0-47.0) % MCV 87.4 (80-100) fL MCH 28.6 (27.0-34.0) pg MCHC 32.7 L (33.0-35.0) g/dL Plt Count 328 (150-450) 10^3/uL Neut % (Auto) 92.5 H (42.2-75.2) % Lymph % (Auto) 4.9 L (20.5-50.1) % [place] % (Auto) 2.1 (2-8) % Eos % (Auto) 0.4 L (1.0-3.0) % Baso % (Auto) 0.1 (0.0-1.0) % Sodium 135 (135-145) mmol/L Potassium 4.1 (3.6-5.0) mmol/L Chloride 102 (101-111) mmol/L Carbon Dioxide 25.0 (21.0-31.0) mmol/L Anion Gap 12.1 BUN 15 (7-18) mg/dL Creatinine 0.8 (0.6-1.3) mg/dL Est Cr Clr Drug Dosing 68.02 mL/min Estimated GFR (MDRD) > 60 BUN/Creatinine Ratio 18.75 Glucose 139 H (74-105) mg/dL Calcium 8.6 (8.4-10.2) mg/dl Total Bilirubin 0.9 (0.2-1.0) mg/dL AST 29 (10-42) IU/L ALT 30 (10-60) IU/L Alkaline Phosphatase 89 (42-121) IU/L Total Protein 7.9 (6.7-8.2) g/dl Albumin 4.2 (3.2-5.5) g/dl Globulin 3.7 Albumin/Globulin Ratio 1.14 HCG, Qual Cancelled Meds: Medications Discontinued Medications Generic Name Dose Route Start Last Admin Trade Name Patricia PRN Reason Stop Dose Admin Sodium Chloride 1,000 mls @ 999 mls/hr 10/09/17 20:55 10/09/17 21:04 Normal Saline IV 10/09/17 21:55 999 mls/hr .BOLUS ONE Administration Iopamidol 100 ml 10/09/17 21:08 10/09/17 21:31 Isovue-300 (61%) IVPUSH 10/09/17 21:09 100 ml ONETIME ONE Administration Ketorolac Tromethamine 15 mg 10/09/17 22:44 10/09/17 23:13 Toradol IVPUSH 10/09/17 22:45 15 mg ONETIME ONE Administration Metoclopramide HCl 5 mg 10/09/17 22:44 10/09/17 23:13 Reglan IVPUSH 10/09/17 22:45 5 mg ONETIME ONE Administration Morphine Sulfate 2 mg 10/09/17 21:43 10/09/17 21:48 Morphine IVPUSH 10/09/17 21:44 2 mg ONETIME ONE Administration Ondansetron HCl 4 mg 10/09/17 20:55 10/09/17 21:06 Zofran IV 10/09/17 20:56 4 mg ONETIME ONE Administration Ondansetron HCl 4 mg 10/09/17 21:43 10/09/17 21:48 Zofran IV 10/09/17 21:44 4 mg ONETIME ONE Administration - Re-Assessments/Exams Free Text/Narrative Re-Assessment/Exam: 10/09/17 22:45 results discussed with pt Departure - Departure Time of Disposition: 23:42 Disposition: Home, Self-Care 01 Condition: Good Clinical Impression: Abdominal pain, Gastroenteritis - Discharge Information Instructions: Nausea and Vomiting, Adult, [id number] Referrals: Danna Pacheco NP [Primary Care Provider] - Forms: ED Department Discharge Additional Instructions: 1) avoid solid foods next 3 to 4 days 2) recheck as needed rx given; bentyl 10mg bid prn x 6 zofran 4mg bid prn x 6
[2017-10-09 21:20] LABS: CHLORIDE,CL 102 mmol/L (101-111); SODIUM,NA 135 mmol/L (135-145)
[2017-10-09] MEDS ORDERED: Morphine 2 MG/ML Syringe IVPUSH ONE (21:43)
[2017-10-09] MEDS ORDERED: Ketorolac 30 MG/ML SDV IVPUSH ONE (22:44)
[2017-10-09] MEDS ORDERED: Metoclopramide 10 MG/2 ML SDV IVPUSH ONE (22:44)
[2017-10-09 23:40] VITALS: BP 123/80
== END 2017-10-09 23:38 | disposition home or self-care (01) ==
LOC: DL.ED 19:52
DX: K52.9 Noninfective gastroenteritis and colitis, unspecified (principal); I10 Essential (primary) hypertension; E66.9 Obesity, unspecified; Z91.040 Latex allergy status; Z88.2 Allergy status to sulfonamides; Z88.8 Allergy status to other drugs, medicaments and biological substances; Z79.899 Other long term (current) drug therapy
CPT/HCPCS: 36415; 74177; 80053; 85025; 96361; 96374; 96375; 99284; J1885; J2270; J2405; J2765; J7030; Q9967